=== PATIENT | female | born 1995 | race Caucasian/White ===

== ENCOUNTER 2024-06-12 17:00 | Emergency (ER) | payer BC, SELFPAY ==
[2024-06-12 17:10] VITALS: BP 124/73; PULSE 65; RESP 18; TEMP 36.4; O2SAT 100; BMI 36.6
--- NOTE | 2024-06-12 17:44 | CRLHL7_ITS ---
For Patients: As a result of the Century Cures Act, medical imaging exams and procedure reports are released immediately into your electronic medical record. You may view this report before your referring provider. If you have questions, please contact your health care provider. INDICATION: Dysfunctional heavy bleeding. TECHNIQUE: Ultrasound pelvis transabdominal and transvaginal. Real-time sonographic images with spectral and color Doppler imaging of the ovaries were obtained. COMPARISON: None FINDINGS: Uterus: 9.1 x 3.9 x 4.8 cm. Endometrium: Within normal limits. The endometrial thickness measures 0.3 cm. Mass: No uterine fibroids identified. Free fluid: Trace pelvic free fluid, which may be physiologic. Right ovary: 3.2 x 1.8 x 2.6 cm. No ovarian or adnexal masses. Blood flow is noted on color Doppler. Left ovary: 3.8 x 2.6 x 2.7 cm. No ovarian or adnexal masses. Blood flow is noted on color Doppler. Other: Tubular fluid-filled structure along the posterior cul-de-sac. No internal vascularity. IMPRESSION: Tubular fluid-filled structure along the posterior cul-de-sac, configuration is suggestive of hydrosalpinx. Differential includes dilated loop of bowel, although felt to be less likely as no peristalsis was seen. Dictated by Fransico Beauchamp MD @ 06/12/2024 7:37:57 PM (Electronically Signed)
--- NOTE | 2024-06-12 17:49 | ED.GENADULT ---
HPI - General Adult General Chief complaint: Urogenital Problems, Female Stated complaint: abdomen pain Time Seen by Provider: 06/12/24 17:07 Source: patient Mode of arrival: ambulatory Limitations: language barrier History of Present Illness HPI narrative: Yi-speaking 29-year-old female presents the emergency department with persistent vaginal bleeding for the past 6 days. Reports that her menses have been coming regular to me but she was evaluated by her primary care provider 3 days ago and reported irregular cycles for the past 2 months. She was having return of bleeding after her. Had come as predicted and would last 5 days and then she would start bleeding more heavily for a few days again. No prior pregnancies. Denies chance of now. Did take a home test that was negative yesterday. She was on oral contraceptives for about 13 years and stopped these 2 years ago. She and her partner have been attempting to conceive for the past 3 months per her outpatient records. She is concerned because initially the spotting was light but now has become more heavy. It looks like a referral for an ultrasound and a referral to gynecology was made on her outpatient visit 3 days ago. She had TSH testing which is reportedly normal. I do not see a recent hemoglobin or platelet count. She does have a history of bleeding or blood clotting disorders. No prior history of anticoagulant use. Reports that she has soaked through 6 pads today. Reports that she has had pelvic ultrasound performed in the past care. Circumstances of those are unclear. No prior history of gynecological surgeries. She is having some lower abdominal cramping, not severe. She was informed by the triage nurse to come to the ED since her bleeding has gotten heavier. Reports that her past medical history is benign, no major long-term health problems. No prescription medications. ROS is notable for the gynecological symptoms as above only, otherwise denies times 12 systems. Related Data Home Medications ?Medication ?Instructions ?Recorded ?Confirmed multivitamin (Daily Multi-Vitamin 1 tab PO DAILY 06/12/24 06/12/24 tablet) Previous Rx's ?Medication ?Instructions ?Recorded norethindrone acetate 1.5 See Rx Instructions .Route 06/12/24 mg-ethinyl estradiol 30 mcg tablet .COMPLEX #21 tabs (June) ondansetron 4 mg disintegrating 4 mg PO Q8H PRN nausea and 06/12/24 tablet vomiting #5 tabs Allergies Allergy/AdvReac Type Severity Reaction Status Date / Time No Known Drug Allergies Allergy Verified 06/12/24 17:09 [facility] Social History Smoking Status: Never smoker How often do you have a drink containing alcohol: never How often do you have six or more drinks on one occasion: Never AUDIT-C Alcohol total score: 0 Non-prescribed substance use: denies use service: No Exam Const: Vital Signs, click to edit/add: Vital Signs - 24 hr 06/12/24 17:10 Temperature 97.5 F L Pulse Rate [Pulse Oximeter] 65 Respiratory Rate 18 Blood Pressure [Ri ght Upper Arm] 124/73 Pulse Oximetry 100 Oxygen Delivery Me thod Room Air Documenting provider has reviewed patient's vital signs: yes Common normals: no apparent distress and alert General appearance: cooperative and well kempt HENMT: Common normals: normocephalic Head and scalp: normocephalic Face and sinus: normal facial exam Mouth: oral and palatal mucosa normal Throat: posterior oropharynx normal Eye: Common normals: conjunctivae normal General eye: normal appearance of both eyes Conjunctiva: conjunctiva(e) normal Neck & C-Spine: Common normals: no lymphadenopathy General: normal visual inspection Resp: Common normals: normal respiratory effort, no use of accessory muscles and clear to auscultation bilaterally Effort & inspection: able to speak in complete sentences Auscultation: clear to auscultation bilaterally Cardio: Common normals: regular rate, regular rhythm, S1 normal heart sound, S2 normal heart sound and no murmurs Rate: regular rate Rhythm: regular rhythm Heart sounds: S1 normal and S2 normal GI: Common normals: Normal to inspection, nondistended, normoactive bowel sounds present, soft to palpation, non-tender, no hepatosplenomegaly and no masses Palpation: soft and no hepatosplenomegaly : Common normals: external appearance normal and appearance of the vagina normal Other: Cervix multiparous in appearance with mild to moderate vaginal bleeding, no heavy clots. Dark red color. No unusual odor, no purulent discharge. Bimanual exam shows normal uterine contour, size and positioning. Ovaries cannot be palpated. No obvious mass. No cervical motion tenderness. Extremity: Common normals: normal to inspection and no pedal edema Neuro: Sensorium/orientation: alert Speech: speech normal Psych: Appearance: well kempt Activity/motor behavior: appropriate eye contact Mood and affect: euthymic mood Insight: insight good Judgement: judgment good Skin: Common normals: no rashes or lesions noted General skin exam: no rashes or lesions noted Course Course ED Course: 29-year-old female with increased vaginal bleeding and cramping. No signs of severe hemorrhage on initial exam. Will obtain CBC, basic metabolic panel and test. Pelvic ultrasound ordered. Consider gynecology consult if any severe anemia or abnormalities on ultrasound. Did briefly discuss with patient that we do typically do around of hormones to suppress some antral cycle if the bleeding is heavy or as needed. We can discuss this further as it does sound as though she is attempting to conceive in may want to defer on that. There does not seem to be in any imminent risk of harm from hemorrhage at this time. Reevaluation(s) Time of Reevaluation #1: 20:10 Reevaluation #1: Counseled patient on findings. Blood work is reassuring. No severe anemia. Normal platelets, no leukocytosis. test is negative. Urinalysis is not suspicious for any pathology. Ultrasound shows hydrosalpinx but otherwise no significant abnormalities to the uterus or ovaries. The bleeding has slowed again. Counseled patient on options. She is hesitant to use control pills as she is hoping to conceive. Counseled patient that she certainly does not half to as her bleeding seems to have slowed at this point and she is not showing any signs of dangerous hemorrhage. But I counseled the patient that if she chooses to do so, the proper dosing would be 2 pills by mouth 2 times a day for the 1st day and then 1 pill 2 times a day for the 2nd day and then 1 pill daily until directed to stop or that pack of pills is gone. The bleeding should stop around the 3rd day. Zofran given for anti nausea medicine if needed as well. Alarm symptoms reviewed that would warrant ED presentation. Written instructions provided. [employer] used for all services today. Also counseled on the hydrosalpinx. She should keep her gynecology appointment as scheduled on 06/30. Vital Signs Vital signs: Initial Vital Signs Temperature 97.5 F L 06/12/24 17:10 Temperature Source Temporal Artery Scan 06/12/24 17:10 Pulse Rate 65 06/12/24 17:10 Respiratory Rate 18 06/12/24 17:10 Blood Pressure 124/73 06/12/24 17:10 Blood Pressure Mean 90 06/12/24 17:10 Blood Pressure Position Sitting 06/12/24 17:10 Pulse Oximetry 100 06/12/24 17:10 Oxygen Delivery Method Room Air 06/12/24 17:10 Vital Signs Temperature 97.5 F L 06/12/24 17:10 Pulse Rate 65 06/12/24 17:10 Respiratory Rate 18 06/12/24 17:10 Blood Pressure 124/73 06/12/24 17:10 Pulse Oximetry 100 06/12/24 17:10 Oxygen Delivery Method Room Air 06/12/24 17:10 Temperature 97.5 F L 06/12/24 17:10 Pulse Rate 65 06/12/24 17:10 Respiratory Rate 18 06/12/24 17:10 Blood Pressure 124/73 06/12/24 17:10 Pulse Oximetry 100 06/12/24 17:10 Oxygen Delivery Method Room Air 06/12/24 17:10 Medical Decision Making Lab Data Labs: Lab Results 06/12/24 06/12/24 Range/Units 17:55 19:00 WBC 7.38 (4.50-11.00) K/uL RBC 3.78 L (4.00-5.20) m/uL Hgb 11.8 L (12.0-16.0) gm/dL Hct 35.2 (33.0-51.0) % MCV 93 (80-100) fL MCH 31 (26-34) pg MCHC 34 (32-36) gm/dL RDW Coeff of Zhou 12.8 (11.5-15.5) % Plt Count 278 (140-440) K/uL Neut % (Auto) 59.3 (42.0-72.0) % Lymph % (Auto) 31.2 (20-44) % [place] % (Auto) 6.8 (0.0-11.0) % Eos % (Auto) 2.4 (0.0-7.0) % Baso % (Auto) 0.3 (0.0-3.0) % Neut # (Auto) 4.38 (1.7-7.0) K/uL Lymph # (Auto) 2.30 (0.90-2.90) K/uL [place] # (Auto) 0.50 (0.00-0.90) K/UL Eos # (Auto) 0.18 (0.00-0.50) K/uL Baso # (Auto) 0.02 (0.00-0.30) K/uL Abs Immat Gran (auto) 0.00 (0.00-0.30) K/uL Imm/Tot Granulo (auto) 0.0 % Sodium 138 (135-149) mmol/L Potassium 3.6 (3.6-5.1) mmol/L Chloride 107 (96-114) mmol/L Carbon Dioxide 25 (20-32) mmol/L Anion Gap 6 L (7-15) mEq/L BUN 16 (5-24) mg/dL Creatinine 0.6 (0.5-1.5) mg/dL Estimated Creat Clear 122.25 Estimated GFR 123 ml/min Glucose 94 (60-115) mg/dL Calcium 8.6 (8.4-10.6) mg/dL HCG, Qual Negative (Negative) Urine Color Yellow (Yellow) Urine Appearance Clear (Clear) Urine pH 7.0 (5.0-8.5) Ur Specific [place] 1.020 (1.000-1.030) Urine Protein Negative (Negative) Urine Glucose (UA) Negative (Negative) Urine Ketones Negative (Negative) Urine Blood 2+ A (Negative) Urine Nitrite Negative (Negative) Urine Bilirubin Negative (Negative) Urine Urobilinogen 0.2 (0.2-1.0) Ur Leukocyte Esterase Negative (Negative) Urine RBC 0-2 (0-2) Urine WBC 0-2 (0-5) Ur Squamous Epith Cells Few (None-Few) Urine Bacteria None (None) Discharge Plan Discharge Clinical Impression: Dysfunctional uterine bleeding, Hydrosalpinx Patient Disposition: Home w/ Parent or Adult Condition: Stable Instructions: Abnormal (Dysfunctional) Uterine Bleeding (ED) Additional Instructions: As we discussed, your blood work does not show any signs of abnormal blood clotting, anemia or other abnormality. This is good news. Your ultrasound does not show any abnormality on the uterus or ovaries but it does show some fluid in 1 of the fallopian tubes. This may be making it difficult for you to get . It is not an emergency but it does need further evaluation by a clinical data analyst. Please keep your appointment as scheduled for 2 weeks from now. As discussed, the bleeding is not a dangerous amount currently. You do not have to initiate any treatment. We could make the bleeding slow or stop entirely by using a rapid high dose titration of control pills. You are uncertain if you would like to try these. I have sent a prescription in case you decide that this is something you want to pursue. If you decide to take it, you will take 2 pills by mouth 2 times a day on the 1st day and then 1 pill 2 times per day for the 2nd day and then continue taking 1 pill daily until gone or directed to stop. Unfortunately, this may cause some nausea and I have given you a prescription for some anti nausea medications if needed. For most, the bleeding will stop or slow significantly by the 3rd day. If you continue to have very heavy bleeding, become lightheaded, very dizzy or have other signs of complications, you may return to the emergency department in the meantime. You do not need to keep the appointment for the ultrasound that you have scheduled outpatient. Sabrina ya comentamos, vincent an?lisis de lorena no muestra purvi?n signo de coagulaci?n sangu?taylor anormal, anemia u otra anomal?a. Es pavel buena noticia. Vincent ecograf?a no muestra ninguna anomal?a en el ?tero ni en los ovarios, yoav s? muestra algo de l?quido en pavel de las trompas de [place] puede dificultarle el embarazo. No es pavel emergencia, yoav s? requiere pavel evaluaci?n adicional por parte de un ginec?logo. Por favor, no deje de acudir a vincent jacques programada para dentro de 2 semanas. Sabrina ya comentamos, el sangrado no es peligroso en bunny momento. No tiene que iniciar purvi?n tratamiento. [place]r?[place] hacer que el sangrado sea m?s lento o detenerlo por completo utilizando pavel titulaci?n r?pida de dosis altas de p?ldoras anticonceptivas. No est? porras de si le gustar?a probarlas. Le he enviado pavel receta en lizz de que decida que es algo que desea hacer. Si decide tomarlo, sabine? 2 p?ldoras por v?a oral 2 veces al d?a el primer d?a y luego 1 p?ldora 2 veces al d?a el ye d?a y luego seguir? tomando 1 p?ldora al d?a hasta que se acabe o se le indique que deje de tomarlas. Lamentablemente, esto puede causar algunas n?useas y le he dado pavel receta para algunos medicamentos contra las n?useas si es necesario. En la mayor?a de los casos, el sangrado se detendr? o disminuir? significativamente al tercer d?a. Si contin?a teniendo un sangrado muy intenso, se siente mareada, muy aturdida o tiene otros signos de complicaciones, puede regresar al departamento de emergencias mientras tanto. No es necesario que asista a la jacques para la ecograf?a que program? sabrina paciente ambulatorio. Activity Level: No Restrictions Discharge Diet: Regular Prescriptions: New norethindrone ac-eth estradiol [ (21)] 1.5-30 mg-mcg tablet See Rx Instructions .ROUTE .COMPLEX Qty: 21 0RF Rx Instructions: Two pills by mouth 2 times daily on the 1st day, then 1 pill by mouth 2 times daily the 2nd day, then 1 pill daily until gone ondansetron 4 mg tablet,disintegrating 4 mg PO Q8H PRN (Reason: nausea and vomiting) Qty: 5 0RF Rx Instructions: As needed for nausea No Action multivitamin [Daily Multi-Vitamin] Tablet 1 tab PO DAILY Follow Up/Referrals: Provider,Not a Local [Primary Care Provider] - Stand Alone [facility]
[2024-06-12 18:07] LABS: Basophils Absolute Auto 0.02 K/uL (0.00-0.30); Basophils Percent Auto 0.3 % (0.0-3.0); Eosinophils Absolute Auto 0.18 K/uL (0.00-0.50); Eosinophils Percent Auto 2.4 % (0.0-7.0); Hematocrit 35.2 % (33.0-51.0); Hemoglobin* 11.8 gm/dL (12.0-16.0); Lymphocytes Percent Auto 31.2 % (20-44); Mean Corpuscular HGB Conc 34 gm/dL (32-36); Mean Corpuscular Hemoglobin 31 pg (26-34); Mean Corpuscular Volume 93 fL (80-100); Monocytes Percent Auto 6.8 % (0.0-11.0); Neutrophils Absolute Auto 4.38 K/uL (1.7-7.0); Neutrophils Percent Auto 59.3 % (42.0-72.0); Platelet Count* 278 K/uL (140-440); RDW Coefficient of Variation % 12.8 % (11.5-15.5); Red Blood Count 3.78 m/uL (4.00-5.20); White Blood Count* 7.38 K/uL (4.50-11.00)
[2024-06-12 18:14] LABS: Slide Review Reflex No
[2024-06-12 18:19] LABS: Chloride* 107 mmol/L (96-114); Potassium* 3.6 mmol/L (3.6-5.1); Sodium* 138 mmol/L (135-149)
[2024-06-12 18:22] LABS: Anion Gap 6 mEq/L (7-15); Blood Urea Nitrogen* 16 mg/dL (5-24); Calcium* 8.6 mg/dL (8.4-10.6); Carbon Dioxide* 25 mmol/L (20-32); Creatinine* 0.6 mg/dL (0.5-1.5); Est. Creatinine Clearance* 122.25; Estimated Glomerular Filt Rate 123 ml/min; Glucose* 94 mg/dL (60-115)
[2024-06-12 18:52] LABS: HCG Qualitative Serum* Negative (Negative)
[2024-06-12 19:12] LABS: Appearance Urine Clear (Clear); Bilirubin Urine Negative (Negative); Blood Urine 2+ (Negative); Color Urine Yellow (Yellow); Glucose Urine Negative (Negative); Ketones Urine Negative (Negative); Leukocyte Esterase Urine Negative (Negative); Nitrite Urine Negative (Negative); Protein Urine Negative (Negative); Urobilinogen Urine 0.2 (0.2-1.0)
[2024-06-12 19:30] LABS: RBC Urine 0-2 (0-2); Squamous Epithelial Cell Urine Few (None-Few); WBC Urine 0-2 (0-5)
== END 2024-06-12 20:20 | disposition home or self-care (01) ==
PROVIDERS: Emergency Provider Family Medicine
DX: N93.8 Other specified abnormal uterine and vaginal bleeding (principal); N70.11 Chronic salpingitis
CPT/HCPCS: 36415; 76830; 76856; 80048; 81001; 81003; 84703; 85025; 99284

== ENCOUNTER 2024-07-10 09:39 | Inpatient (IN) | payer BC, SELFPAY ==
[2024-07-10] VITALS (16 sets, daily range): BP systolic 108–130; BP diastolic 57–92; PULSE 90–119; RESP 18–20; TEMP 36.7–38.7; O2SAT 79–100; BMI 36.1; BMI 35.6
--- OUTSIDE RECORDS SUMMARY | 2024-07-10 09:41 | XMS_ITS | Clinical Summary ---
Author Organization [facility] Address [place], [place] [address] Care Team Providers Care Parts Facilitator Name Role Phone Pcp, No Primary Care Provider Unavailabl e Allergies No known active allergies Medications multivit,thx,ca lcium,iron,mins (MULTIVITAMIN AND MINERAL ORAL) Take by mouth. Active doxycycline hyclate 100 mg capsuleIndicati ons:Hydrosalpin x Take 2 Capsules (200 mg) by mouth one time for 1 dose. Take just before the x-ray study (HSG) 2 Capsule 06/30/19 25 Active Problems No known active problems Encounters Date Type Department Care Team Description 07/09/2024 8:14 AM FOOD AND BEVERAGE OPERATIONS MANAGER - 07/09/2024 11:59 PM FOOD AND BEVERAGE OPERATIONS MANAGER Hospital Encounter [facility] Medical Imaging [address] [place] [address] Lux Finch MD Irregular menses 07/09/2024 Telephone [facility] [address] [facility] [address] [place] [address] Lux Finch MD Results 07/08/2024 9:45 AM FOOD AND BEVERAGE OPERATIONS MANAGER Orders Only [facility] [address] [place] [address] Lab, [facility] 07/08/2024 Travel 07/01/2024 Telephone [facility] [address] [facility] [address] [place] [address] Lux Finch MD Appointment 06/30/2024 4:00 PM FOOD AND BEVERAGE OPERATIONS MANAGER Office Visit [facility] [address] [place] [address] Lux Finch MD Consult (Discuss Irregular cycle ) 06/30/2024 Travel 06/23/2024 4:00 PM FOOD AND BEVERAGE OPERATIONS MANAGER Ancillary Procedure [facility] [address] [place] [address] 06/23/2024 Travel 06/11/2024 Nurse Triage [facility] [address] [place] [address] Lux Finch MD Building Construction Engineer Exam; Vaginal Bleeding 06/09/2024 8:55 AM FOOD AND BEVERAGE OPERATIONS MANAGER Office Visit [facility] [address] [place] [address] Renee Calle, Physical (29 year old ); Menstrual Problem (Has been having an irregular period for a couple months, will sometimes get more bleeding the following week - would like an US - is interesting in getting as well ); Thyroid Problem (Was diagnosed with thyroid disorder previously as well and had been taking medication, has not taken medication for about 1.5 years - had labs checked in August 2023 and labs were normal ) 06/09/2024 Travel from Last 3 Months Family History Medical History Relation Name Comments Hypertension Father Hypertension Maternal Grandfather Hypertension Maternal Grandmother Hypertension Mother Cancer Paternal Grandfather stomach Diabetes type II Paternal Grandfather Diabetes type II Paternal Grandmother Relation Name Status Comments Father Maternal Grandfather Maternal Grandmother Mother Paternal Grandfather Paternal Grandmother Social History Tobacco Use Types Packs/Day Years Used Date Smoking Tobacco: Never Passive Smoke Exposure: Never Smokeless Tobacco: Never Tobacco Cessation:Counseling Given: Yes Alcohol Use Standard Drinks/Week Comments Yes 0 (1 standard drink = 0.6 oz pur e alcohol) social PHQ-2 Answer Date Recorded PHQ-2 TOTAL SCORE 2 06/09/2024 Social Connections Answer Date Recorded Do you often feel lonely or isolated from those around you? 0 06/09/2024 Financial Resource Strain Answer Date R ecorded Difficulty of Paying Living Expenses 3 06/09/2024 Difficulty of Paying Living Expenses Not on file 06/09/2024 Food Insecurity Answer Date Recorded Do you worry your food will run out before you are able to buy more? 1 06/09/2024 Transportation Needs Answer Date Record ed Does lack of transportation keep you from medica l appointments? 1 06/09/2024 Does lack of transportation keep you from work, meetings or getting things that you need? 1 06/09/2024 Housing Stability Answer Date Recorded What is your housing situation today? 3 06/09/2024 Utilities Answer Date Recorded Do you have trouble paying f or utilities (for example, heat, electricity, water, phone)? 1 06/09/2024 Comments No Sex and Gender Information Value Date Recorded Sex Assigned at Not on file Legal Sex Female 3:32 PM FOOD AND BEVERAGE OPERATIONS MANAGER Gender Identity Not on file Sexual Orientation Not on file Obstetrics History Para Term AB IAB SAB Ectopic Multiple Livin g Live Births 0 0 0 0 0 0 0 0 0 0 0 Last Filed Vital Signs Vital Sign Reading Time Taken Comments Blood Pressure 134/86 06/30/2024 4:12 PM FOOD AND BEVERAGE OPERATIONS MANAGER Pulse 72 06/30/2024 4:12 PM FOOD AND BEVERAGE OPERATIONS MANAGER Temperature - - Respiratory Rate - - Oxygen Saturation 98% 06/09/2024 9:05 AM FOOD AND BEVERAGE OPERATIONS MANAGER Inhaled Oxygen Concentration - - Weight 98.8 kg (217 lb 14.4 oz) 06/30/2024 4:12 PM FOOD AND BEVERAGE OPERATIONS MANAGER Height 168.5 cm (5' 6.34) 06/09/2024 9:05 AM CS T Body Mass Index 34.81 06/09/2024 9:05 AM FOOD AND BEVERAGE OPERATIONS MANAGER Plan of Treatment Upcoming Encounters Date Type Department Care Team (Late st Contact Info) Description 07/14/2024 1:45 PM FOOD AND BEVERAGE OPERATIONS MANAGER Nurse/Clinic Staff Only [facility] [address] [place] [address] 07/14/2024 2:00 PM FOOD AND BEVERAGE OPERATIONS MANAGER Orders Only [facility] [address] [place] [address] [place], [place] 07/15/2024 7:30 AM FOOD AND BEVERAGE OPERATIONS MANAGER Nurse/Clinic Staff Only [facility] [address] [place] [address] [address] 07/29/2024 10:15 AM FOOD AND BEVERAGE OPERATIONS MANAGER Ancillary Procedure [facility] [address] [place] [address] Lux Finch MD [address] [facility] [address] [place] [address] Health Maintenance Due Date Last Done Comments Tdap 01/16/2004 HIV for age 15-65 01/16/2008 Hepatitis C screening for ag e 18-79 2011 Tetanus booster 2013 Pap test for age 21-65 2014 COVID-19 vaccine series (2023- season) 2024 Influenza for age 9-49 02/02/2024 BMI (ht and wt on same day) for age 18+ 06/09/2025 06/09/2024 Depression screening for age 12+ 06/11/2025 06/11/2024, 06/09/2024 Pneumococcal series for age 6-49 Aged Out No longer eligible b ased on patient's age to complete this topic Procedures Procedure Name Priority Date/Time Associated Diagnosis Comments XR HYSTEROSALPINGOGRAM Routine 9:59 AM FOOD AND BEVERAGE OPERATIONS MANAGER Irregular menses T4,FREE Routine 07/08/2024 9:15 AM FOOD AND BEVERAGE OPERATIONS MANAGER FSH Routine 07/08/2024 9:15 AM FOOD AND BEVERAGE OPERATIONS MANAGER Irregular menses TSH WITH REFLEX Routine 07/08/2024 9:15 AM FOOD AND BEVERAGE OPERATIONS MANAGER Irregular menses PROLACTIN Routine 07/08/2024 9:15 AM FOOD AND BEVERAGE OPERATIONS MANAGER Irregular menses US PELVIS COMPLETE TA AND TV Routine 06/23/2024 4:11 PM FOOD AND BEVERAGE OPERATIONS MANAGER Irregular menses T4,FREE Routine 06/09/2024 10:18 AM FOOD AND BEVERAGE OPERATIONS MANAGER TSH WITH REFLEX Routine 06/09/2024 10:18 AM FOOD AND BEVERAGE OPERATIONS MANAGER History of thyroid disorder BASIC METABOLIC PANEL Routine 06/09/2024 10:18 AM FOOD AND BEVERAGE OPERATIONS MANAGER Annual physical exam CBC WITH AUTO DIFFERENTIAL Routine 06/09 10:18 AM FOOD AND BEVERAGE OPERATIONS MANAGER Annual physical exam HEMOGLOBIN A1C MONITORING (POCT) Routine 06/09/2024 10:17 AM FOOD AND BEVERAGE OPERATIONS MANAGER Class 2 severe obesity with body mass index (BMI) of 35 to 39.9 with serious comorbidity (HC) from Last 3 Months Results * XR HYSTEROSALPINGOGRAM (07/09/2024 9:59 AM FOOD AND BEVERAGE OPERATIONS MANAGER) Anatomical Region Laterality Modality UTERUS Computed Radiogr aphy 07/09/2024 9:59 AM FOOD AND BEVERAGE OPERATIONS MANAGER Impressions 07/09/2024 11:53 AM FOOD AND BEVERAGE OPERATIONS MANAGER 1. Severe bilateral hydrosalpinx with marked dilation of the distal fallopian tubes bilaterally. No free spillage was identified from either the right or left fallopian tube suggesting bilateral occlusion. Narrative 07/09/2024 11:53 AM FOOD AND BEVERAGE OPERATIONS MANAGER For Patients: As a result of the Cures Act, medical imaging exams and procedure reports are released immediately into your electronic medical record. You may view this report before your referring provider. If you have questions, please contact your health care provider. EXAM: XR HYSTEROSALPINGOGRAM LOCATION: [facility] MEDICAL IMAGING DATE: 07/09/2024 INDICATION: Irregular Menses COMPARISON: None. RADIATION DOSE: DAP 892.2 uGym2 PROCEDURE: Procedure and risks explained and consent received. A time out was performed where the proper patient, procedure, and site were confirmed. Using sterile technique, a hysterosalpingogram catheter was placed into the cervix by Dr. Barber and 8 mL Omni 300 contrast material was injected into the uterus and fallopian tubes under direct fluoroscopic supervision. Routine images obtained. COMPLICATIONS: None. RADIOLOGIC SUPERVISION AND INTERPRETATION: UTERUS: Normal configuration with no filling defects or strictures. FALLOPIAN TUBES: Severe bilateral hydrosalpinx with marked dilation of the distal fallopian tubes bilaterally. No free spillage was identified from either the right or left fallopian tubes. Procedure Note Gonzales Barber MD - 07/09/2024 For Patients: As a result of the Cures Act, medical imagingexams and procedure reports are released immediately into your electronicmedical record. You may view this report before your referring provider.If you have questions, please contact your health care provider. EXAM: XR HYSTEROSALPINGOGRAM LOCATION: [facility] MEDICAL IMAGING DATE: 07/09/2024 INDICATION: Irregular Menses COMPARISON: None. RADIATION DOSE: DAP 892.2 uGym2 PROCEDURE: Procedure and risks explained and consent received. A time outwas performed where the proper patient, procedure, and site wereconfirmed. Using sterile technique, a hysterosalpingogram catheter wasplaced into the cervix by Dr. Barber and 8 mL Omni 300 contrast materialwas injected into the uterus and fallopian tubes under direct fluoroscopicsupervision. Routine images obtained. COMPLICATIONS: None. RADIOLOGIC SUPERVISION AND INTERPRETATION: UTERUS: Normal configuration with no filling defects or strictures. FALLOPIAN TUBES: Severe bilateral hydrosalpinx with marked dilation of thedistal fallopian tubes bilaterally. No free spillage was identified fromeither the right or left fallopian tubes. IMPRESSION: 1. Severe bilateral hydrosalpinx with marked dilation of the distalfallopian tubes bilaterally. No free spillage was identified from eitherthe right or left fallopian tube suggesting bilateral occlusion. us Lux Finch MD FLUOROSCOPY Final Result * (ABNORMAL) TSH WITH REFLEX (07/08/2024 9:15 AM FOOD AND BEVERAGE OPERATIONS MANAGER) Only the most recent of2 resultswithin the time period is included. TSH W/REFLEX TO FT4 5.04(H) mIU/L [facility] Comment: Reference Range > or = 20 Years 0.40-4.50 Ranges First trimester 0.26-2.66 Second trimester 0.55-2.73 Third trimester 0.43-2.91 Blood BLOOD SPECIMEN / Unknown 07/08/2024 9:15 AM FOOD AND BEVERAGE OPERATIONS MANAGER 07/08/2024 9:15 AM FOOD AND BEVERAGE OPERATIONS MANAGER us Lux Finch MD CHEMISTRY Final Result [facility] [address] [place] [address], [facility] [address] [place] [address] * T4,FREE (07/08/2024 9:15 AM FOOD AND BEVERAGE OPERATIONS MANAGER) Only the most recent of2 resultswithin the time period is included. [facility] T4, FREE 1.1 0.8 - 1.8 ng/dL [facility] 07/08/2024 9:15 AM FOOD AND BEVERAGE OPERATIONS MANAGER 07/08/2024 9:15 AM FOOD AND BEVERAGE OPERATIONS MANAGER Lux Finch MD CHEMISTRY Final Result [facility] [address] [place] [address], [place] [phone] [facility] [address] [place] [address] * PROLACTIN (07/08/2024 9:15 AM FOOD AND BEVERAGE OPERATIONS MANAGER) [facility] PROLACTIN 8.5 ng/mL [facility] Comment: Reference Range Females Non- 3.0-30.0 10.0-209.0 Postmenopausal 2.0-20.0 Blood BLOOD SPECIMEN / Unknown 07/08/2024 9:15 AM FOOD AND BEVERAGE OPERATIONS MANAGER 07/08/2024 9:15 AM FOOD AND BEVERAGE OPERATIONS MANAGER Lux Finch MD SEND OUTS Final Result [facility] [address] [place] [address], [place] [phone] [facility] [address] [place] [address] * FSH (07/08/2024 9:15 AM FOOD AND BEVERAGE OPERATIONS MANAGER) [facility] FSH 6.5 mIU/mL [facility] Comment: Reference Range Follicular Phase 2.5-10.2 Mid-cycle Peak 3.1-17.7 Luteal Phase 1.5- 9.1 Postmenopausal 23.0-116.3 Blood BLOOD SPECIMEN / Unknown 07/08/2024 9:15 AM FOOD AND BEVERAGE OPERATIONS MANAGER 07/08/2024 9:15 AM FOOD AND BEVERAGE OPERATIONS MANAGER us Lux Finch MD CHEMISTRY Final Result [facility] [address] [place] [address], [place] [phone] [facility] [address] [place] [address] * US PELVIS COMPLETE TA AND TV (06/23/2024 4:11 PM FOOD AND BEVERAGE OPERATIONS MANAGER) Anatomical Region Laterality Modality Pelvis Ultrasound 06/23/2024 5:44 PM FOOD AND BEVERAGE OPERATIONS MANAGER Impressions 06/23/2024 5:44 PM FOOD AND BEVERAGE OPERATIONS MANAGER Endometrium is heterogeneous and measures 9 millimeters. 4.6 cm simple left ovarian cyst. Possible left hydrosalpinx. Dictated by Lux Rodriguez MD @ 06/23/2024 5:44:55 PM (Electronically Signed) Narrative 06/23/2024 5:44 PM FOOD AND BEVERAGE OPERATIONS MANAGER For Patients: As a result of the Century Cures Act, medical imaging exams and procedure reports are released immediately into your electronic medical record. You may view this report before your referring provider. If you have questions, please contact your health care provider. INDICATION: Irregular menses COMPARISON: none TECHNIQUE: 2D fernandez scale and color Doppler images were acquired of the pelvis using a transabdominal and transvaginal approach. FINDINGS: Sonographic images demonstrate a normal size and smooth outer contour of the uterus. Uterus measures 9.3 cm in length by 4.2 cm in AP diameter by 4.1 cm in transverse dimension. The myometrium has a heterogeneous echotexture. The endometrial lining appears heterogeneous and measures 9 mm in composite thickness. The right ovary measures 3.7 x 2.7 x 1.9 cm in size and the left ovary measures 6.7 x 3.7 x 2.0 cm. The ovaries demonstrate normal arterial and venous blood flow on color Doppler analysis. Simple circumscribed left ovarian cyst is present measuring 4.6 x 4.3 x 4.4 cm. Left hydrosalpinx may be present. Procedure Note Lux Rodriguez MD - 06/23/2024 For Patients: As a result of the Century Cures Act, medical imagingexams and procedure reports are released immediately into your electronicmedical record. You may view this report before your referring provider.If you have questions, please contact your health care provider. INDICATION: Irregular menses COMPARISON: none TECHNIQUE: 2D fernandez scale and color Doppler images were acquired of the pelvis using atransabdominal and transvaginal approach. FINDINGS: Sonographic images demonstrate a normal size and smooth outer contour ofthe uterus. Uterus measures 9.3 cm in length by 4.2 cm in AP diameter by4.1 cm in transverse dimension. The myometrium has a heterogeneousechotexture. The endometrial lining appears heterogeneous and measures 9mm in composite thickness. The right ovary measures 3.7 x 2.7 x 1.9 cm in size and the left ovarymeasures 6.7 x 3.7 x 2.0 cm. The ovaries demonstrate normal arterial andvenous blood flow on color Doppler analysis. Simple circumscribed leftovarian cyst is present measuring 4.6 x 4.3 x 4.4 cm. Left hydrosalpinxmay be present. IMPRESSION: Endometrium is heterogeneous and measures 9 millimeters. 4.6 cm simple left ovarian cyst. Possible left hydrosalpinx. Dictated by Lux Rodriguez MD @ 06/23/2024 5:44:55 PM (Electronically Signed) [facility] Final Result * CBC AND DIFFERENTIAL (06/09/2024 10:18 AM FOOD AND BEVERAGE OPERATIONS MANAGER) WHITE BLOOD CELL COUNT 6.5 3.8 - 10.8 Thousand/u L [facility] RED BLOOD CELL COUNT 3.90 3.80 - 5.10 Million/uL [facility] HEMOGLOBIN 12.4 11.7 - 15.5 g/dL [facility] HEMATOCRIT 36.7 35.0 - 45.0 % [facility] MCV 94.1 80.0 - 100.0 fL [facility] MCH 31.8 27.0 - 33.0 pg [facility] MCHC 33.8 32.0 - 36.0 g/dL [facility] Comment: For adults, a slight decrease in the calculated MCHC value (in the range of 30 to 32 g/dL) is most likely not clinically significant; however, it should be interpreted with caution in correlation with other red cell parameters and the patient's clinical condition. RDW 12.5 11.0 - 15.0 % [facility] PLATELET COUNT 303 140 - 400 Thousand/u L [facility] MPV 9.9 7.5 - 12.5 fL [facility] ABSOLUTE NEUTROPHILS 3,913 1,500 - 7,800 cells/uL [facility] ABSOLUTE LYMPHOCYTES 1,937 850 - 3,900 cells/uL [facility] ABSOLUTE MONOCYTES 449 200 - 950 cells/uL [facility] ABSOLUTE EOSINOPHILS 169 15 - 500 cells/uL [facility] ABSOLUTE BASOPHILS 33 0 - 200 cells/uL [facility] NEUTROPHILS 60.2 % [facility] LYMPHOCYTES 29.8 % [facility] MONOCYTES 6.9 % [facility] EOSINOPHILS 2.6 % [facility] BASOPHILS 0.5 % [facility] Blood BLOOD SPECIMEN / Unknown 06/09/2024 10:18 AM FOOD AND BEVERAGE OPERATIONS MANAGER 06/09/2024 10:18 AM FOOD AND BEVERAGE OPERATIONS MANAGER us Kelsiei Alva DO HEMATOLOGY Final Result [facility] [address] [place] [address], [facility] [address] [place] [address] * BASIC METABOLIC PANEL (06/09/2024 10:18 AM FOOD AND BEVERAGE OPERATIONS MANAGER) Pathologist [facility] GLUCOSE 83 65 - 99 mg/dL [facility] Comment: Fasting reference interval UREA NITROGEN (BUN) 15 7 - 25 mg/dL [facility] CREATININE 0.67 0.50 - 0.97 mg/dL [facility] EGFR 120 > OR = 60 mL/min/1. 73m2 [facility] BUN/CREATININE RATIO SEE NOTE: 6 - 22 (calc) [facility] Comment: Not Reported: BUN and Creatinine are within reference range. SODIUM 140 135 - 146 mmol/L [facility] POTASSIUM 4.4 3.5 - 5.3 mmol/L [facility] CHLORIDE 107 98 - 110 mmol/L [facility] CARBON DIOXIDE 24 20 - 32 mmol/L [facility] ELECTROLYTE BALANCE 9 7 - 17 mmol/L (calc) [facility] CALCIUM 9.0 8.6 - 10.2 mg/dL [facility] Blood BLOOD SPECIMEN / Unknown 06/09/2024 10:18 AM FOOD AND BEVERAGE OPERATIONS MANAGER 06/09/2024 10:18 AM FOOD AND BEVERAGE OPERATIONS MANAGER Renee Calle DO CHEMISTRY Final Result [facility] [address] [place] [address], [place] [phone] [facility] [address] [place] [address] * POCT Hemoglobin A1C Monitoring (06/09/2024 10:17 AM FOOD AND BEVERAGE OPERATIONS MANAGER) POC HEMOGLOBIN A1C 5.2 <6.0 % OF TOTAL HGB [facility] Comment: Any point of care results exhibiting inconsistency with the patient's clinical status should be repeated using a different testing method. Blood BLOOD SPECIMEN / Unknown 06/09/2024 10:17 AM FOOD AND BEVERAGE OPERATIONS MANAGER 06/09/2024 10:17 AM FOOD AND BEVERAGE OPERATIONS MANAGER Renee Calle DO CHEMISTRY Final Result [facility] [address] [place] [address], [place] [phone] [facility] [address] [place] [address] from Last 3 Months Insurance BLUE CROSS OF NON-MO-ITS Care Teams Parts Facilitator Relationship Specialty Start Date End Date Pcp, No . PCP - General 05/21/24
--- NOTE | 2024-07-10 10:05 | CRLHL7_ITS ---
For Patients: As a result of the Century Cures Act, medical imaging exams and procedure reports are released immediately into your electronic medical record. You may view this report before your referring provider. If you have questions, please contact your health care provider. INDICATION: Left lower quadrant pain. According to the ultrasound worksheet, the patient had a salpingogram performed yesterday at [facility] (those images are not available for comparison). COMPARISON: None available. TECHNIQUE: Transabdominal and endovaginal grayscale and spectral Doppler pelvic ultrasound. FINDINGS: LMP: Not provided. Uterus: Measures 4.9 x 4 x 8.8cm. Unremarkable cervix. Please note that US is insensitive for detection of epithelial lesions of the cervix, compared to physical examination. Endometrial stripe: Measures 3mm. Uniform in thickness. Right Ovary: Measures 2.3 x 2.5 x 3.7cm and 11mL. Morphologically normal. Spectral Doppler demonstrates normalarterial and venousblood flow. Left Ovary: Measures 3 x 2.1 x 3.3cm and 11mL. Morphologically normal. Spectral Doppler demonstrates normalarterial and venousblood flow. Pelvic fluid: Small volume anechoic left adnexal free pelvic fluid. Bilateral hydrosalpinges, left larger than right. Low-level particulate debris is present within the asymmetrically dilated left fallopian tube. This may indicate evidence of pyosalpinx. Clinical correlation is recommended. IMPRESSION: Bilateral asymmetrical, left larger than right, hydrosalpinges. Low-level particular debris within the dilated left fallopian tube may indicate evidence of pyosalpinx. Clinical correlation is recommended. Small volume left adnexal free pelvic fluid. Normal uterus and ovaries. Dictated by Syd Clinton MD @ 07/10/2024 12:16:22 PM (Electronically Signed)
--- NOTE | 2024-07-10 10:13 | ED_ITS ---
HPI - General Adult General Chief complaint: Abdominal Pain Stated complaint: Abdominal Pain Time Seen by Provider: 07/10/24 10:04 Source: patient Mode of arrival: ambulatory Limitations: no limitations History of Present Illness HPI narrative: 29-year-old female presenting today with pelvic pain. Patient states that she had a salpingogram done yesterday and did okay post procedure. She required ibuprofen last night and this morning she took another dose but the pain is overwhelming. Pain is suprapubic. She denies pain with urination or blood in her urine. She had a bowel movement yesterday that was normal. She denies any fevers or chills. She feels very nauseated, denies vomiting. Nothing seems to make the pain better or worse. According to the patient, she takes a daily multivitamin, no other medications. Related Data Home Medications ?Medication ?Instructions ?Recorded ?Confirmed multivitamin (Daily Multi-Vitamin 1 tab PO DAILY 06/12/24 07/10/24 tablet) Allergies Allergy/AdvReac Type Severity Reaction Status Date / Time No Known Drug Allergies Allergy Verified 06/12/24 17:09 Review of Systems Status of ROS: Reports: 10 or more systems reviewed and unremarkable except as noted in History and below PFSH PFS Social History Smoking Status: Never smoker How often do you have a drink containing alcohol: never How often do you have six or more drinks on one occasion: Never AUDIT-C Alcohol total score: 0 Non-prescribed substance use: denies use service: No Exam Narrative: Exam Narrative: Well-nourished well-developed patient, appears overwhelmed. Alert and oriented. Answers questions appropriately. Thoughts are goal oriented and rational. No tangential or magical thinking noted. Patient speaks in full sentences without needing to catch her breath. HEENT: Normocephalic atraumatic. Pupils are equally round reactive to light. Extraocular muscles are intact. Conjunctivae are moist without any icterus noted. Moist mucous membranes. Cardiovascular: Heart is regular rate and rhythm S1 and S2 are present without any murmurs. Lungs: Clear to auscultation bilaterally no wheezes rhonchi or rales are appreciated. Patient takes deep breaths without any discomfort. Abdomen: Soft, nondistended with normal bowel sounds. Patient has suprapubic discomfort and the lower right and left lower quadrant discomfort. Extremities: Bilateral lower extremities are without edema. Skin: Well perfused without any obvious rashes. Const: Vital Signs, click to edit/add: Vital Signs - 24 hr 07/10/24 09:57 07/10/24 12:12 07/10/24 12:12 Temperature 98.1 F Pulse Rate 93 Pulse Rate [Pulse Oximeter] 90 99 Respiratory Rate 20 18 Blood Pressure Blood Pressure [Ri ght Upper Arm] 115/68 115/76 Pulse Oximetry 100 98 98 Oxygen Delivery Me thod Room Air 07/10/24 12:13 07/10/24 13:43 07/10/24 13:44 Temperature Pulse Rate 95 113 H 114 H Pulse Rate [Pulse Oximeter] Respiratory Rate Blood Pressure 115/76 130/92 H Blood Pressure [Ri ght Upper Arm] Pulse Oximetry 100 97 97 Oxygen Delivery Me thod 07/10/24 13:44 07/10/24 13:45 07/10/24 14:00 Temperature Pulse Rate 114 H 112 H 115 H Pulse Rate [Pulse Oximeter] Respiratory Rate Blood Pressure 130/92 H Blood Pressure [Ri ght Upper Arm] Pulse Oximetry 97 95 95 Oxygen Delivery Me thod 07/10/24 14:01 07/10/24 14:15 07/10/24 14:30 Temperature Pulse Rate 119 H 114 H 116 H Pulse Rate [Pulse Oximeter] Respiratory Rate Blood Pressure 127/79 Blood Pressure [Ri ght Upper Arm] Pulse Oximetry 79 L 96 98 Oxygen Delivery Me thod 07/10/24 14:31 07/10/24 14:31 07/10/24 14:31 Temperature Pulse Rate 119 H 119 H 119 H Pulse Rate [Pulse Oximeter] Respiratory Rate Blood Pressure 117/60 117/60 117/60 Blood Pressure [Ri ght Upper Arm] Pulse Oximetry 98 98 98 Oxygen Delivery Me thod 07/10/24 14:45 Temperature Pulse Rate 114 H Pulse Rate [Pulse Oximeter] Respiratory Rate Blood Pressure Blood Pressure [Ri ght Upper Arm] Pulse Oximetry 95 Oxygen Delivery Me thod Course Course ED Course: IV was established and patient is given 30 mg of IV Toradol. WBC is elevated at 16.85. Normal lactate. Chemistries are normal. CRP is elevated at 2.8. UA shows 2+ blood, 0-2 RBCs moderate squamous epithelial cells. Pelvic ultrasound shows bilateral asymmetrical left larger than right hydrosalpinges, low level particular debris within the dilated left fallopian tube may indicate evidence of pyosalpinx. I discussed this with Dr. Chang who recommended outpatient treatment for PID with a dose of Rocephin here in the ER and oral doxycycline. However as we were waiting for the patient's results to all returned she became very nauseated and vomited multiple times. She then spiked a temperature of 101?. Her pain got gradually worse and she required Dilaudid IV pain medication for pain control. Discussed these changes with Dr. Chang who was in agreement with inpatient treatment. Because of her fever we also checked for COVID and influenza which were negative. Vital Signs Vital signs: Initial Vital Signs Temperature 98.1 F 07/10/24 09:57 Temperature Source Temporal Artery Scan 07/10/24 09:57 Pulse Rate 90 07/10/24 09:57 Respiratory Rate 20 07/10/24 09:57 Blood Pressure 115/68 07/10/24 09:57 Blood Pressure Mean 83 07/10/24 09:57 Pulse Oximetry 100 07/10/24 09:57 Vital Signs Temperature 98.1 F 07/10/24 09:57 Pulse Rate 90 07/10/24 09:57 Respiratory Rate 20 07/10/24 09:57 Blood Pressure 115/68 07/10/24 09:57 Pulse Oximetry 100 07/10/24 09:57 Temperature 98.1 F 07/10/24 09:57 Pulse Rate 114 H 07/10/24 14:45 Respiratory Rate 18 07/10/24 12:12 Blood Pressure 117/60 07/10/24 14:31 Pulse Oximetry 95 07/10/24 14:45 Oxygen Delivery Method Room Air 07/10/24 12:12 Medications Administered Medications: Discontinued Medications Generic Name Dose Route Start Last Admin Trade Name Freq PRN Reason Stop Dose Admin Hydromorphone HCl 0.5 mg 07/10/24 13:24 07/10/24 13:38 Hydromorphone 0.5 Mg/0.5 Ml Inj IVP 07/10/24 13:25 0.5 mg ONCE ONE Administration Ceftriaxone Sodium 2 gm/ 100 mls @ 200 mls/hr 07/10/24 12:41 07/10/24 13:30 Sodium Chloride IVPB 07/10/24 12:42 Infused ONCE ONE Infusion Sodium Chloride 500 mls @ 500 mls/hr 07/10/24 12:41 07/10/24 13:24 0.9 % Sodium Chloride 500 Ml IV 07/10/24 13:40 500 mls/hr .Q1H ONE Administration Ketorolac Tromethamine 30 mg 07/10/24 10:05 07/10/24 10:22 Ketorolac 30 Mg/Ml Inj IVP 07/10/24 10:06 30 mg ONCE ONE Administration Ondansetron HCl 4 mg 07/10/24 12:41 07/10/24 12:54 Ondansetron 2 Mg/Ml Inj IVP 07/10/24 12:42 4 mg ONCE ONE Administration Medical Decision Making MDM Narrative Medical decision making narrative: 29-year-old female with bilateral hydrosalpinx and questionable pyosalpinx. Patient will be admitted for further management. Medical Records Medical records reviewed: Yes I reviewed the patient's medical records Lab Data Lab results reviewed: Yes I reviewed the patient's lab results Labs: Lab Results 07/10/24 07/10/24 07/10/24 Range/Units 10:22 10:50 13:30 WBC 16.85 H (4.50-11.00) K/uL RBC 3.58 L (4.00-5.20) m/uL Hgb 11.1 L (12.0-16.0) gm/dL Hct 33.1 (33.0-51.0) % MCV 93 (80-100) fL MCH 31 (26-34) pg MCHC 34 (32-36) gm/dL RDW Coeff of Zhou 12.4 (11.5-15.5) % Plt Count 248 (140-440) K/uL Neut % (Auto) 87.3 H (42.0-72.0) % Lymph % (Auto) 6.9 L (20-44) % [place] % (Auto) 5.3 (0.0-11.0) % Eos % (Auto) 0.2 (0.0-7.0) % Baso % (Auto) 0.1 (0.0-3.0) % Neut # (Auto) 14.70 H (1.7-7.0) K/uL Lymph # (Auto) 1.20 (0.90-2.90) K/uL [place] # (Auto) 0.90 (0.00-0.90) K/UL Eos # (Auto) 0.00 (0.00-0.50) K/uL Baso # (Auto) 0.00 (0.00-0.30) K/uL Abs Immat Gran (auto) 0.00 (0.00-0.30) K/uL Imm/Tot Granulo (auto) 0.2 % Sodium 139 (135-149) mmol/L Potassium 3.8 (3.6-5.1) mmol/L Chloride 106 (96-114) mmol/L Carbon Dioxide 21 (20-32) mmol/L Anion Gap 12 (7-15) mEq/L BUN 17 (5-24) mg/dL Creatinine 0.6 (0.5-1.5) mg/dL Estimated Creat Clear 122.25 Estimated GFR 123 ml/min Glucose 109 (60-115) mg/dL Lactate 1.5 (0.5-1.9) mmol/L Calcium 8.8 (8.4-10.6) mg/dL C-Reactive Protein 2.8 H (0.5-1.0) mg/dL Urine Color Yellow (Yellow) Urine Appearance Slightly Cloudy A (Clear) Urine pH 5.5 (5.0-8.5) Ur Specific [place] 1.020 (1.000-1.030) Urine Protein Negative (Negative) Urine Glucose (UA) Negative (Negative) Urine Ketones Negative (Negative) Urine Blood 2+ A (Negative) Urine Nitrite Negative (Negative) Urine Bilirubin Negative (Negative) Urine Urobilinogen 0.2 (0.2-1.0) Ur Leukocyte Esterase Negative (Negative) Urine RBC 0-2 (0-2) Urine WBC 0-2 (0-5) Ur Squamous Epith Cells Moderate A (None-Few) Amorphous Sediment Few A (None) Urine Bacteria Moderate A (None) Urine HCG, Qual Negative (Negative) SARS-CoV-2 (PCR) Negative SARS-CoV-2 (Negative) Influenza Type A (PCR) Negative PCR FLU A (Negative) Influenza Type B (PCR) Negative PCR FLU B (Negative) Imaging Data US - abdomen: Attestation: I have reviewed the pertinent imaging results. Radiologist's impression: TECHNIQUE: Transabdominal and endovaginal grayscale and spectral Doppler pelvic ultrasound. FINDINGS: LMP: Not provided. Uterus: Measures 4.9 x 4 x 8.8cm. Unremarkable cervix. Please note that US is insensitive for detection of epithelial lesions of the cervix, compared to physical examination. Endometrial stripe: Measures 3mm. Uniform in thickness. Right Ovary: Measures 2.3 x 2.5 x 3.7cm and 11mL. Morphologically normal. Spectral Doppler demonstrates normalarterial and venousblood flow. Left Ovary: Measures 3 x 2.1 x 3.3cm and 11mL. Morphologically normal. Spectral Doppler demonstrates normalarterial and venousblood flow. Pelvic fluid: Small volume anechoic left adnexal free pelvic fluid. Bilateral hydrosalpinges, left larger than right. Low-level particulate debris is present within the asymmetrically dilated left fallopian tube. This may indicate evidence of pyosalpinx. Clinical correlation is recommended. IMPRESSION: Bilateral asymmetrical, left larger than right, hydrosalpinges. Low-level particular debris within the dilated left fallopian tube may indicate evidence of pyosalpinx. Clinical correlation is recommended. Small volume left adnexal free pelvic fluid. Normal uterus and ovaries. Discharge Plan Discharge Clinical Impression: Pyosalpinx Patient Disposition: Admitted As Observation Condition: Stable Prescriptions: No Action multivitamin [Daily Multi-Vitamin] Tablet 1 tab PO DAILY Follow Up/Referrals: Provider,Not a Local [Primary Care Provider] -
[2024-07-10] MEDS: KETOROLAC 30 MG/ML inj IVP ×2 (10:22→17:39)
[2024-07-10 10:36] LABS: Lactate* 1.5 mmol/L (0.5-1.9)
[2024-07-10 10:43] LABS: Basophils Percent Auto 0.1 % (0.0-3.0); Eosinophils Percent Auto 0.2 % (0.0-7.0); Hematocrit 33.1 % (33.0-51.0); Hemoglobin* 11.1 gm/dL (12.0-16.0); Immature Granulocytes Pct Auto 0.2 %; Lymphocytes Percent Auto 6.9 % (20-44); Mean Corpuscular HGB Conc 34 gm/dL (32-36); Mean Corpuscular Hemoglobin 31 pg (26-34); Mean Corpuscular Volume 93 fL (80-100); Monocytes Percent Auto 5.3 % (0.0-11.0); Neutrophils Percent Auto 87.3 % (42.0-72.0); Platelet Count* 248 K/uL (140-440); RDW Coefficient of Variation % 12.4 % (11.5-15.5); Red Blood Count 3.58 m/uL (4.00-5.20); White Blood Count* 16.85 K/uL (4.50-11.00)
[2024-07-10 10:50] LABS: Slide Review Reflex No
[2024-07-10 10:55] LABS: Chloride* 106 mmol/L (96-114); Potassium* 3.8 mmol/L (3.6-5.1); Sodium* 139 mmol/L (135-149)
[2024-07-10 10:58] LABS: Anion Gap 12 mEq/L (7-15); Blood Urea Nitrogen* 17 mg/dL (5-24); Carbon Dioxide* 21 mmol/L (20-32); Creatinine* 0.6 mg/dL (0.5-1.5); Est. Creatinine Clearance* 122.25; Estimated Glomerular Filt Rate 123 ml/min
[2024-07-10 10:59] LABS: Calcium* 8.8 mg/dL (8.4-10.6); Glucose* 109 mg/dL (60-115)
[2024-07-10 11:01] LABS: C Reactive Protein* 2.8 mg/dL (0.5-1.0)
[2024-07-10 11:16] LABS: Appearance Urine Slightly Cloudy (Clear); Bilirubin Urine Negative (Negative); Blood Urine 2+ (Negative); Color Urine Yellow (Yellow); Glucose Urine Negative (Negative); Ketones Urine Negative (Negative); Leukocyte Esterase Urine Negative (Negative); Nitrite Urine Negative (Negative); Protein Urine Negative (Negative); Urobilinogen Urine 0.2 (0.2-1.0); pH Urine 5.5 (5.0-8.5)
[2024-07-10 11:19] LABS: Ur HCG Qualitative* Negative (Negative)
[2024-07-10 11:24] LABS: Amorphous Sediment Urine Few; Bacteria Urine Moderate; RBC Urine 0-2 (0-2); Squamous Epithelial Cell Urine Moderate (None-Few); WBC Urine 0-2 (0-5)
[2024-07-10] MEDS: ONDANSETRON 2 MG/ML inj 4 MG IVP ×2 (12:54→18:00)
[2024-07-10] MEDS: cefTRIAXone 2 GM in 0.9 % SODIUM CHLORIDE Mini-bag 100 ML IVPB (12:55)
[2024-07-10] MEDS: 0.9 % SODIUM CHLORIDE 500 ML 500 ML IV (13:24)
[2024-07-10] MEDS: HYDROmorphone 0.5 mg/0.5 ml inj IVP ×2 (13:38→18:08)
[2024-07-10 14:35] LABS: PCR FLU A Negative PCR FLU A (Negative); PCR FLU B Negative PCR FLU B (Negative); SARS PCR* Negative SARS-CoV-2 (Negative)
--- NOTE | 2024-07-10 15:58 | ED.NURSE ---
Pt report given to klever RN, pt to room 262.
--- NOTE | 2024-07-10 16:17 | P.GYNHP_ITS ---
RESEARCH CHIEF ENGINEER - H&P:HPI Medical History of Present Illness Time Seen by Provider: 15:00 Date Seen: 07/10/24 Reason for admission: pelvic inflammatory disease Narrative: Jj Shore is a 29 year old nulligravid female who presented to the emergency department complaining of severe pelvic pain. History was obtained with the assistance of a android developer via ipad. The patient was undergoing an infertility evaluation through the [facility]. She had a hysterosalpingogram yesterday morning. Prior to the HSG, she had been diagnosed by ultrasound with a probable left hydrosalpinx as well as a simple left ovarian cyst. At the time of her HSG, the physician noted severe bilateral hydrosalpinx with marked dilation of the distal fallopian tubes bilaterally. No free spillage was identified from either the right or left fallopian tube suggesting bilateral occlusion. She was given a prescription for 200 mg doxycycline that she took just prior to the hysterosalpingogram procedure. The patient states that the procedure was uncomfortable, but the pain resolved after the procedure. She began having more significant pain at midnight last night. She treated her pain with oral ibuprofen last night and then again this morning. She also complained of feeling hot and cold with chills overnight, as well as nausea. She went to work this morning, but the pain persisted and was so intense that she presented to the emergency department. The pain is located all across the low abdomen, worse on the left than the right. She has had some irregular bleeding between menses over the last few months, and she has had some light vaginal bleeding since her procedure yesterday. During her evaluation in the emergency department, her nausea worsened and she experienced emesis. She was also reported to be febrile, though EMR records a T-max of 99.0? F. The patient was able to bring up test results through her [facility] patient portal, which I reviewed, and noted that her white blood cell count yesterday was normal, 6.5. Today it is significantly elevated at 16.85. A pelvic ultrasound was performed today that demonstrated bilateral hydrosalpinx, left larger than right. Low-level particulate debris was noted to be present within the asymmetrically-dilated left fallopian tube, suspicious for pyosalpinx. The patient complained of significant pain with advancement of the transvaginal ultrasound probe during the ultrasound examination. GYNECOLOGIC HISTORY: Cis gender female. LMP: 07/03/24. Irregular intermenstrual bleeding over the last few months. Menarche at age 11. Contraception: Patient has been actively trying to conceive for the last three months. She stopped her oral contraceptive a couple of years ago. Pap history: Per [facility] medical records, normal pap 2022, negative HPV 2023. Possible history of ablation of her cervix for HPV approximately in 2015, no excisional procedure done. Denies history of STDs or PID. Denies history of endometriosis. Review of Systems Status of ROS: Reports: 10 or more systems reviewed and unremarkable except as noted in History and below Meds Home Medications and Allergies Home Medications ?Medication ?Instructions ?Recorded ?Confirmed ?Type multivitamin (Daily Multi-Vitamin 1 tab PO DAILY 06/12/24 07/10/24 History tablet) Allergies Allergy/AdvReac Type Severity Reaction Status Date / Time No Known Drug Allergies Allergy Verified 06/12/24 17:09 PFSH Active Problems Pyosalpinx (Acute) ?N70.93 - Salpingitis and oophoritis, unspecified (ICD-10) Family History (Updated 07/10/24 @ 16:35 by Amparo Chang MD) Mother High blood pressure Father High blood pressure Maternal Grandfather High blood pressure Maternal Grandmother High blood pressure Paternal Grandfather Diabetes Stomach cancer Paternal Grandmother Diabetes Social History (Updated 07/10/24 @ 16:36 by Amparo Chang MD) Narrative: Single What is your current living situation?: I presently have a place to live Problems where you live: no known problems Problems where you live details: NA In the past 12 months, utilities in danger of being shut off: no In past 12 months, lack of transportation kept you from medical appts, meetings, work, or getting things needed for daily living: no In the past 12 mos, have been you worried that your food would run out before you had money to buy more?: never true In the past 12 mos, the food you bought just didn't last and you didn't have money to buy more?: never true Highest level of school completed/degree received: Bachelor's degree Smoking Status: Never smoker How often do you have a drink containing alcohol: never How many standard drinks containing alcohol do you have on a typical day: 3 or 4 How often do you have six or more drinks on one occasion: Never AUDIT-C Alcohol total score: 1 Non-prescribed substance use: denies use Caffeine: Yes How often does anyone, including family, friends and others, physically hurt you : never How often does anyone, including family, friends and others, insult or talk down to you: never How often does anyone, including family, friends and others, threaten you with harm: rarely How often does anyone, including family, friends and others, scream or curse at you: never Do you think of yourself as: straight/heterosexual Gender Identity: female Are you currently sexually active: Yes service: No Health Related Social Needs: Other personal risk factors, not elsewhere classified (Z91.89) Reproductive Health History : 0 History of sexually transmitted diseases: No Treatment for infertility: No RESEARCH CHIEF ENGINEER - Exam Physical Exam: Vital signs: Temp Pulse Resp BP Pulse Ox O2 Del Method 98.3 F 114 H 18 117/60 95 Room Air 07/10/24 14:50 07/10/24 14:45 07/10/24 12:12 07/10/24 14:31 07/10/24 14:45 07/10/24 12:12 Constitutional: Constitutional: mild distress (occasional grimace with movement) Routine HEENT Exam: Head: Present normal inspection Eye: Present normal appearance ENT: Present mucous membranes moist Routine Respiratory Exam: Respiratory: Present CTA bilaterally Routine Cardiovascular Exam: Cardiovascular: Present RRR Routine Abdominal Exam: Abdominal: Present soft and tenderness (Diffuse tenderness low abdomen, left greater than right); Absent guarding or rebound Routine Exam: Patient deferred: external exam Routine Extremities Exam: Extremities: Present normal inspection RESEARCH CHIEF ENGINEER - Results Labs Labs: Short CBC 07/10/24 Range/Units 10:22 WBC 16.85 H (4.50-11.00) K/uL Hgb 11.1 L (12.0-16.0) gm/dL Hct 33.1 (33.0-51.0) % Plt Count 248 (140-440) K/uL BMP 07/10/24 10:22 Sodium 139 Potassium 3.8 Chloride 106 Carbon Dioxide 21 BUN 17 Creatinine 0.6 Glucose 109 Calcium 8.8 Urine 07/10/24 Range/Units 10:50 Urine Color Yellow (Yellow) Urine Appearance Slightly Cloudy A (Clear) Urine pH 5.5 (5.0-8.5) Ur Specific [place] 1.020 (1.000-1.030) Urine Protein Negative (Negative) Urine Glucose (UA) Negative (Negative) Imaging US - pelvis: Attestation: I have reviewed the pertinent imaging results. My impression: Bilateral hydrosalpinx, extremely tortuous dilated left fallopian tube, approximately 5 cm left adnexal cyst with some internal debris. Radiologist's impression: Bilateral asymmetrical, left larger than right, hydrosalpinges. Low-level particular debris within the dilated left fallopian tube may indicate evidence of pyosalpinx. Clinical correlation is recommended. Small volume left adnexal free pelvic fluid. Normal uterus and ovaries. Assessment and Plan Assessment and plan (1) Pyosalpinx: Status: Acute Plan 1. During my evaluation of the patient within the emergency department, I did obtain a vaginal swab for gonorrhea/chlamydia. 2. The patient certainly may have pyosalpinx or pelvic inflammatory disease as a result of her hysterosalpingogram procedure and inadequate antibiotic coverage yesterday. She is not a candidate for outpatient treatment due to inability to tolerate p.o. secondary to nausea and vomiting today. Will admit to the medical-surgical unit for broad-spectrum IV antibiotic therapy, specifically doxycycline, ceftriaxone, and metronidazole. Pain will be controlled with IV Toradol, and morphine if necessary until she is tolerating p.o., at which time she will be transition to oral ibuprofen and Tylenol. We will plan to recheck a CBC with differential tomorrow morning. Once the patient has made adequate clinical improvement, she can be discharged to home on oral antibiotic therapy. 3. The patient had questions regarding fertility. Because of the bilateral hydrosalpinx, it is unlikely that she will conceive spontaneously. Ultimately, she may need to have her fallopian tubes removed surgically and undergo in vitro fertilization to conceive. This will need to be addressed at follow-up with her primary care or gynecologic provider. Total Time Spent Total Time Spent: 90 minutes.
[2024-07-10] MEDS: MORPHINE 2 MG/ML inj IVP (16:29)
[2024-07-10 17:21] LABS: Chlamydia DNA Amplified* NOT DETECTED (No Detected); GC DNA Amplified* NOT DETECTED (No Detected)
[2024-07-10] MEDS: ACETAMINOPHEN 500 MG TABLET 1000 MG PO (17:57)
[2024-07-10] MEDS: 0.9 % SODIUM CHLORIDE 1000 ml 1,000 ML 125 ML IV (17:58)
[2024-07-10] MEDS: DOXYCYCLINE HYCLATE 100 MG in 0.9 % SODIUM CHLORIDE Mini-bag 100 ML IVPB (17:59)
[2024-07-10] MEDS: metroNIDAZOLE 500 MG/100 ML PIGGYBACK 100 MG IVPB (18:59)
--- NOTE | 2024-07-10 19:35 | PC.NURSE ---
Nursing Care Hours: [id number] Pt this shift arrived to the floor via w/c. In person mechanical pencils assembler used for admission. Ipad used for medication administration and reassessments. Able to stand for weight and walk into room. BP stable, HR tachy, oral temp 99.0 and pain rated 7-8/10. During admission, news writer observed grimacing and increasing restlessness d/t pain. Heating pad supplied per pt request and Morphine IV given. After 1hr, checked pt and pt crying, increased restlessness, temp 101.7 oral and pain 10/10. Stat order for Dilaudid given and scheduled pain meds given. Acetaminophen PO for temp. Pain decreased to 6-7/10 and pt appeared comfortable and tolerating some bites of food. ABX infused via IV. Library Technician instructed pt to use call light when needing to get up d/t c/o dizziness with ambulation and increased narcotic pain media relations director. Pt receptive.
[2024-07-11] VITALS (10 sets, daily range): BP systolic 106–123; BP diastolic 46–67; PULSE 84–108; RESP 16–18; TEMP 36.8–39.3; O2SAT 94–97
[2024-07-11] MEDS: ACETAMINOPHEN 500 MG TABLET 1000 MG PO ×3 (04:08→18:22)
[2024-07-11] MEDS: 0.9 % SODIUM CHLORIDE 1000 ml 1,000 ML 125 ML IV ×2 (04:08→17:58)
[2024-07-11] MEDS: MORPHINE 2 MG/ML inj IVP ×4 (04:09→17:46)
[2024-07-11] MEDS: DOXYCYCLINE HYCLATE 100 MG in 0.9 % SODIUM CHLORIDE Mini-bag 100 ML IVPB ×2 (05:29→17:46)
[2024-07-11] MEDS: metroNIDAZOLE 500 MG/100 ML PIGGYBACK 100 MG IVPB ×2 (06:45→20:03)
[2024-07-11 07:01] LABS: Basophils Percent Auto 0.1 % (0.0-3.0); Eosinophils Percent Auto 0.4 % (0.0-7.0); Hematocrit 28.2 % (33.0-51.0); Hemoglobin* 9.4 gm/dL (12.0-16.0); Immature Granulocytes Pct Auto 0.2 %; Lymphocytes Percent Auto 8.5 % (20-44); Mean Corpuscular HGB Conc 33 gm/dL (32-36); Mean Corpuscular Hemoglobin 31 pg (26-34); Mean Corpuscular Volume 93 fL (80-100); Monocytes Percent Auto 5.7 % (0.0-11.0); Neutrophils Percent Auto 85.1 % (42.0-72.0); Platelet Count* 207 K/uL (140-440); RDW Coefficient of Variation % 12.8 % (11.5-15.5); Red Blood Count 3.02 m/uL (4.00-5.20); White Blood Count* 16.28 K/uL (4.50-11.00)
[2024-07-11 07:10] LABS: Slide Review Reflex No
--- NOTE | 2024-07-11 07:15 | PC.NURSE ---
End of shift [id number] ? Pt alert, oriented, cooperative. Up with standby assistance. Reported pain in abdomen rated as 7-8/10. Medication given per MAR with pt reporting minor improvement. Tolerating RA and regular diet/fluids. Denies SOB and n/v. Aqua K pad in place for pt comfort. Afebrile during shift. Appears to be resting in bed with call light within reach at end of shift.
--- NOTE | 2024-07-11 09:29 | PM.GYNPNNOR ---
Progress Note: A&P Assessment and plan (1) Pyosalpinx: Status: Acute Plan PID: This morning WBC still elevated. Has been afebrile since yesterday at around 7pm. She was able to eat a bit this morning w/o nausea or vomiting. She is hungry. Vital signs have remained stable and tachycardia has improved. Currently has not completed 24 hours of IV antibiotics. Will continue current management with IV Ceftriaxone, Flagyl and Doxycycline. Will add IV Toradol every 8 hours. Encouraged ambulation if able. If continues to spike fevers, pain worsens or is not manageable with current medication therapy will change antibiotic regimen and consider transfer for possible need for interventional radiology. At his moment, discussed that if we can control infection with IV antibiotics, we would not recommend surgical intervention as it is a higher risk procedure when there is significant associated inflammation. Patient is in agreement with plan. Will follow up closely. ROUTE VENDING MACHINE SERVICER- PN:Subj Non-OR Subjective Date Seen: 07/11/24 Interval history: Regular, wonders why she is still in pain. Yesterday at around 7pm had an episode of fever and associated nausea, vomiting. Symptomatic treatment improved symptoms and she was able to sleep a bit. She did have watery bowel movements last night. This morning was able to eat cereal w/o nausea or vomiting. She is feeling hungry. Patient states pain currently is constant with episodes of sharp pain that go away quickly. Pain has not significantly improved, nor worsened. ROUTE VENDING MACHINE SERVICER-PN: Obj Exam Physical Exam: Vital signs: Temp Pulse Resp BP Pulse Ox O2 Del Method 98.5 F 84 18 114/61 95 Room Air 07/11/24 05:35 07/11/24 05:35 07/11/24 05:35 07/11/24 05:35 07/11/24 05:35 07/11/24 05:35 Narrative: VITAL SIGNS: As noted above. GENERAL APPEARANCE: Alert, cooperative female in no acute distress. MOOD & AFFECT: Normal. ABDOMEN: Decreased bowel sounds, soft, mildly distended. No guarding, no rebound, tenderness to palpation at lower abdominal quadrants. : spotting. EXTREMITIES: Nonedematous. Well perfused. Nontender. ROUTE VENDING MACHINE SERVICER - PN: Obj Data Labs Labs: Laboratory Results - last 24 hr 07/10/24 07/10/24 07/10/24 10:22 10:50 13:30 WBC 16.85 H RBC 3.58 L Hgb 11.1 L Hct 33.1 MCV 93 MCH 31 MCHC 34 RDW Coeff of Zhou 12.4 Plt Count 248 Neut % (Auto) 87.3 H Lymph % (Auto) 6.9 L [place] % (Auto) 5.3 Eos % (Auto) 0.2 Baso % (Auto) 0.1 Neut # (Auto) 14.70 H Lymph # (Auto) 1.20 [place] # (Auto) 0.90 Eos # (Auto) 0.00 Baso # (Auto) 0.00 Abs Immat Gran (auto) 0.00 Imm/Tot Granulo (auto) 0.2 Sodium 139 Potassium 3.8 Chloride 106 Carbon Dioxide 21 Anion Gap 12 BUN 17 Creatinine 0.6 Estimated Creat Clear 122.25 Estimated GFR 123 Glucose 109 Lactate 1.5 Calcium 8.8 C-Reactive Protein 2.8 H Urine Color Yellow Urine Appearance Slightly Cloudy A Urine pH 5.5 Ur Specific [place] 1.020 Urine Protein Negative Urine Glucose (UA) Negative Urine Ketones Negative Urine Blood 2+ A Urine Nitrite Negative Urine Bilirubin Negative Urine Urobilinogen 0.2 Ur Leukocyte Esterase Negative Urine RBC 0-2 Urine WBC 0-2 Ur Squamous Epith Cells Moderate A Amorphous Sediment Few A Urine Bacteria Moderate A Urine HCG, Qual Negative C.trachomatis Ampl DNA SARS-CoV-2 (PCR) Negative SARS-CoV-2 Influenza Type A (PCR) Negative PCR FLU A Influenza Type B (PCR) Negative PCR FLU B N.gonorrhoeae Ampl DNA 07/10/24 07/11/24 15:40 06:29 WBC 16.28 H RBC 3.02 L Hgb 9.4 L Hct 28.2 L MCV 93 MCH 31 MCHC 33 RDW Coeff of Zhou 12.8 Plt Count 207 Neut % (Auto) 85.1 H Lymph % (Auto) 8.5 L [place] % (Auto) 5.7 Eos % (Auto) 0.4 Baso % (Auto) 0.1 Neut # (Auto) 13.90 H Lymph # (Auto) 1.40 [place] # (Auto) 0.90 Eos # (Auto) 0.10 Baso # (Auto) 0.00 Abs Immat Gran (auto) 0.00 Imm/Tot Granulo (auto) 0.2 Sodium Potassium Chloride Carbon Dioxide Anion Gap BUN Creatinine Estimated Creat Clear Estimated GFR Glucose Lactate Calcium C-Reactive Protein Urine Color Urine Appearance Urine pH Ur Specific [place] Urine Protein Urine Glucose (UA) Urine Ketones Urine Blood Urine Nitrite Urine Bilirubin Urine Urobilinogen Ur Leukocyte Esterase Urine RBC Urine WBC Ur Squamous Epith Cells Amorphous Sediment Urine Bacteria Urine HCG, Qual C.trachomatis Ampl DNA NOT DETECTED SARS-CoV-2 (PCR) Influenza Type A (PCR) Influenza Type B (PCR) N.gonorrhoeae Ampl DNA NOT DETECTED
[2024-07-11] MEDS: KETOROLAC 30 MG/ML inj IVP ×2 (10:08→17:45)
[2024-07-11] MEDS: ONDANSETRON 2 MG/ML inj 4 MG IVP ×2 (11:58→17:54)
[2024-07-11] MEDS: cefTRIAXone 1 GM in 0.9 % SODIUM CHLORIDE Mini-bag 100 ML IVPB (12:53)
[2024-07-11 15:24] LABS: Basophils Percent Auto 0.1 % (0.0-3.0); Eosinophils Percent Auto 0.5 % (0.0-7.0); Hematocrit 28.7 % (33.0-51.0); Hemoglobin* 9.5 gm/dL (12.0-16.0); Immature Granulocytes Pct Auto 0.4 %; Lymphocytes Percent Auto 6.7 % (20-44); Mean Corpuscular HGB Conc 33 gm/dL (32-36); Mean Corpuscular Hemoglobin 31 pg (26-34); Mean Corpuscular Volume 94 fL (80-100); Monocytes Percent Auto 5.2 % (0.0-11.0); Neutrophils Percent Auto 87.1 % (42.0-72.0); Platelet Count* 196 K/uL (140-440); RDW Coefficient of Variation % 12.8 % (11.5-15.5); Red Blood Count 3.05 m/uL (4.00-5.20); White Blood Count* 14.69 K/uL (4.50-11.00)
[2024-07-11 15:33] LABS: Slide Review Reflex No
[2024-07-11 15:35] LABS: Albumin* 3.6 g/dL (3.3-5.0); Chloride* 109 mmol/L (96-114)
[2024-07-11 15:36] LABS: Potassium* 3.2 mmol/L (3.6-5.1); Sodium* 139 mmol/L (135-149)
[2024-07-11 15:38] LABS: Bilirubin Total* 0.5 mg/dL (0.1-1.5); Creatinine* 0.6 mg/dL (0.5-1.5); Est. Creatinine Clearance* 122.25; Estimated Glomerular Filt Rate 123 ml/min
[2024-07-11 15:39] LABS: Alanine Aminotransferase* 16 U/L (4-35); Alkaline Phosphatase* 64 U/L (40-150); Anion Gap 9 mEq/L (7-15); Aspartate Amino Transferase* 17 U/L (12-35); Blood Urea Nitrogen* 12 mg/dL (5-24); Carbon Dioxide* 21 mmol/L (20-32); Glucose* 98 mg/dL (60-115); Total Protein* 6.3 g/dL (6.0-8.3)
[2024-07-11 16:09] LABS: C Reactive Protein* 33.1 mg/dL (0.5-1.0)
--- NOTE | 2024-07-11 18:18 | CRLHL7_ITS ---
For Patients: As a result of the Century Cures Act, medical imaging exams and procedure reports are released immediately into your electronic medical record. You may view this report before your referring provider. If you have questions, please contact your health care provider. Indication: PID, not responding to current antibiotic therapy Technique: CT abdomen/pelvis with IV contrast Comparison: Pelvic ultrasound on July 10, 2024 and prior Findings: Lower thorax: Bibasilar atelectasis. Abdomen/pelvis: The liver is unremarkable in appearance. Cholelithiasis without CT evidence of acute cholecystitis. The spleen, pancreas, adrenal glands, kidneys, ureters, and bladder are unremarkable in appearance. The uterus is within normal limits in appearance. There is a tortuous and tubular fluid-filled structure seen in the left adnexa, difficult to accurately measure, but measuring approximately 9.0 centimeters in greatest dimension with tube diameter measuring up to approximately 3.7 centimeters (series number 2, image 128). No significant tubal wall thickening. The right adnexa is unremarkable in appearance. There is no evidence of bowel obstruction or inflammation. The appendix is within normal limits in appearance. No free air, free fluid, or abscess. No abdominopelvic lymphadenopathy. The vasculature is unremarkable. Soft tissue/musculoskeletal: No acute abnormality. Partially visualized breast implants. Tiny calcified granulomas in the subcutaneous fat of the pelvis. Impression: 1. CT findings as detailed above suggestive of left hydrosalpinx versus pyosalpinx in the appropriate clinical context. 2. The remainder of the examination is unremarkable. Please note that all CT scans at this facility use dose modulation, iterative reconstruction, and/or weight-based dosing when appropriate to reduce radiation dose to as low as reasonably achievable. Dictated by Cuco Tidwell MD @ 07/11/2024 8:01:32 PM (Electronically Signed)
[2024-07-11] MEDS: LACTOBACILLUS ACIDOPHILUS 1 TABLET 1 TAB PO (18:22)
--- NOTE | 2024-07-11 18:53 | P.IMCN_ITS ---
Date of Consult Patient: [facility] Patient Consult date: 07/11/24 Requesting Physician: [facility] Primary Care Provider: Not a Local Provider Consult Narrative Reason for consult: Suspected pyosalpinx Narrative: Jj Shore is a 29 year old woman has been in the hospital for over 24 hours for treatment of pyosalpinx, left greater than right, with IV ceftr iaxone 1 g Q 24 hours, IV doxycycline 100 mg Q 12 hours, and IV metronidazole 500 mg IV Q 12 hours. Despite these intervention efforts, she continues to spike fevers as high as 102.7? F and continues to have significant bilateral lower abdominal pelvic pain, still left greater than right. White blood cell count today continues to be elevated at 14.5. C-reactive protein yesterday was 2.8 and today is 33. She is in the process of undergoing infertility assessment. She had a hysterosalpingogram on 07/09/2024. Prior to the HSG, an ultrasound demonstrated a probable left hydrosalpinx as well as a simple left ovarian cyst. The HSG demonstrated ?severe bilateral hydrosalpinx with marked dilatation of the distal fallopian tubes bilaterally. No free spillage was identified from either the right or left fallopian tube suggesting bilateral occlusion.? She took a dose of doxycycline 200 mg orally just prior to the HSG procedure. The pain associated with the HSG eventually resolved. Early in the morning of 07/10/2024 she began having much more significant pain. Attempted to treat pain with oral ibuprofen. Did not get much relief. Also complained of feeling alternatively hot and cold with chills and nausea. Due to the persistent nature of her symptoms she presented to the emergency department for further assessment and support. In the ED she notes pain across the low abdomen left more so than right. Patient also described irregular bleeding between menses over the last few months. T-max in the emergency department was 99? F. White blood cell count on 07/09/24 was 6.5. In the Emergency Department was elevated at 16.9. Pelvic ultrasound performed on 07/10/2024 demonstrated ?bilateral hydrosalpinx, left larger than right. Low-level particulate debris noted to be present within the asymmetrically dilated left fallopian tube, suspicious of pyosalpinx.? Patient noted significant pain with advancement of the transvaginal ultrasound probe during the ultrasound examination. Urine hCG is negative. DNA amplification testing from the urine is negative for chlamydia and gonorrhea. She denies STDs. Review of Systems Status of ROS: Reports: 6 or more systems reviewed and unremarkable except as noted in History and below [facility] Family History Mother High blood pressure Father High blood pressure Maternal Grandfather High blood pressure Maternal Grandmother High blood pressure Paternal Grandfather Diabetes Stomach cancer Paternal Grandmother Diabetes Social History Narrative: Single What is your current living situation?: I presently have a place to live Problems where you live: no known problems Problems where you live details: NA In the past 12 months, utilities in danger of being shut off: no In past 12 months, lack of transportation kept you from medical appts, meetings, work, or getting things needed for daily living: no In the past 12 mos, have been you worried that your food would run out before you had money to buy more?: never true In the past 12 mos, the food you bought just didn't last and you didn't have money to buy more?: never true Highest level of school completed/degree received: Bachelor's degree Smoking Status: Never smoker How often do you have a drink containing alcohol: never How many standard drinks containing alcohol do you have on a typical day: 3 or 4 How often do you have six or more drinks on one occasion: Never AUDIT-C Alcohol total score: 1 Non-prescribed substance use: denies use Caffeine: Yes How often does anyone, including family, friends and others, physically hurt you : never How often does anyone, including family, friends and others, insult or talk down to you: never How often does anyone, including family, friends and others, threaten you with harm: rarely How often does anyone, including family, friends and others, scream or curse at you: never Do you think of yourself as: straight/heterosexual Gender Identity: female Are you currently sexually active: Yes service: No Health Related Social Needs: Other personal risk factors, not elsewhere classified (Z91.89) Meds Home Medications and Allergies Home Medications ?Medication ?Instructions ?Recorded ?Confirmed ?Type multivitamin (Daily Multi-Vitamin 1 tab PO DAILY 06/12/24 07/10/24 History tablet) Allergies Allergy/AdvReac Type Severity Reaction Status Date / Time No Known Drug Allergies Allergy Verified 06/12/24 17:09 Exam Narrative: Exam Narrative: I examined the patient in her hospital room. Vision and hearing are adequate. Speaks fluent Romansh. Does not speak Faroese. We speak with 1 another via iPad logistics manager. She is frightened. She is tearful. Alert and oriented x4. Articulate and cooperative. Lungs clear to auscultation. Heart tones with regular rhythm, rate of around 100. No murmur, gallop, rub. Abdomen with active bowel sounds. Tender in the lower portion of the abdomen. No rebound or guarding. Independent in transfer, station, gait. Skin warm, dry, intact. No rashes. No petechiae. No jaundice. No cyanosis. Const: Vital Signs, click to edit/add: Vital Signs - 24 hr 07/10/24 19:00 07/11/24 01:28 07/11/24 05:35 Temperature 99.6 F 98.2 F 98.5 F Pulse Rate [Left P ulse Oximeter] 96 91 84 Respiratory Rate 18 18 18 Blood Pressure [Le ft Arm] 108/57 L 106/46 L 114/61 Pulse Oximetry 95 97 95 Oxygen Delivery Me thod Room Air Room Air Room Air 07/11/24 11:59 07/11/24 13:42 07/11/24 15:00 Temperature 99.0 F 100.7 F H 100.9 F H Pulse Rate [Left P ulse Oximeter] 88 108 H Respiratory Rate 16 16 Blood Pressure [Le ft Arm] 108/66 123/67 Pulse Oximetry 94 97 Oxygen Delivery Me thod Room Air Room Air 07/11/24 16:00 07/11/24 18:05 07/11/24 18:22 Temperature 99.1 F 102.7 F H 102.7 F H Pulse Rate [Left P ulse Oximeter] Respiratory Rate Blood Pressure [Le ft Arm] Pulse Oximetry Oxygen Delivery Me thod Labs Labs: Short CBC 07/11/24 07/11/24 Range/Units 06:29 15:18 WBC 16.28 H 14.69 H (4.50-11.00) K/uL Hgb 9.4 L 9.5 L (12.0-16.0) gm/dL Hct 28.2 L 28.7 L (33.0-51.0) % Plt Count 207 196 (140-440) K/uL BMP 07/11/24 15:18 Sodium 139 Potassium 3.2 L Chloride 109 Carbon Dioxide 21 BUN 12 Creatinine 0.6 Glucose 98 Calcium 8.0 L Liver Function 07/11/24 Range/Units 15:18 Total Bilirubin 0.5 (0.1-1.5) mg/dL AST 17 (12-35) U/L ALT 16 (4-35) U/L Alkaline Phosphatase 64 (40-150) U/L Albumin 3.6 (3.3-5.0) g/dL Imaging Pelvic ultrasound: Radiologist's impression: FINDINGS: LMP: Not provided. Uterus: Measures 4.9 x 4 x 8.8cm. Unremarkable cervix. Please note that US is insensitive for detection of epithelial lesions of the cervix, compared to physical examination. Endometrial stripe: Measures 3mm. Uniform in thickness. Right Ovary: Measures 2.3 x 2.5 x 3.7cm and 11mL. Morphologically normal. Spectral Doppler demonstrates normalarterial and venousblood flow. Left Ovary: Measures 3 x 2.1 x 3.3cm and 11mL. Morphologically normal. Spectral Doppler demonstrates normalarterial and venousblood flow. Pelvic fluid: Small volume anechoic left adnexal free pelvic fluid. Bilateral hydrosalpinges, left larger than right. Low-level particulate debris is present within the asymmetrically dilated left fallopian tube. This may indicate evidence of pyosalpinx. Clinical correlation is recommended. IMPRESSION: Bilateral asymmetrical, left larger than right, hydrosalpinges. Low-level particular debris within the dilated left fallopian tube may indicate evidence of pyosalpinx. Clinical correlation is recommended. Small volume left adnexal free pelvic fluid. Assessment and Plan Assessment and plan (1) Pyosalpinx: Problem comment: - transvaginal ultrasound 07/10/2024: Bilateral asymmetrical, left larger than right, hydrosalpinges. Low-level particular debris within the dilated left fallopian tube may indicate evidence of pyosalpinx. Clinical correlation is recommended. Small volume left adnexal free pelvic fluid. - currently on ceftriaxone 1 g IV Q 24, doxycycline 100 mg IV q.12, metronidazole 500 mg IV q.12, and within the last 1-2 hours piperacillin with tazobactam 3.375 g IV q.6 hours was started. - agree with ordering a CT scan to make sure that were not missing an acute appendicitis or other phlegmon or complication from the pyosalpinx. - agree with the tentative plan of transferring patient to a tertiary [facility] care facility with Interventional Radiology capabilities depending on patient response to interventions undertaken and depending on the findings on the CT scan. Status: Acute Plan 1. Reviewed impression with patient 2. Obtain a lactate level. We will treat with IV crystalloid fluids as warranted depending on the result of the lactate level 3. Will be available to confer with Dr. Mclain Total Time Spent Total Time Spent: 60 minutes
[2024-07-11] MEDS: 0.9 % SODIUM CHLORIDE 1000 ml 1,000 ML IV (19:12)
[2024-07-11] MEDS: PIPERACILLIN/TAZOBACTAM 3.375 GM in 0.9 % SODIUM CHLORIDE Mini-bag 100 ML IVPB (19:12)
[2024-07-11] MEDS: POTASSIUM CHLORIDE 10 MEQ CAPSULE ER 40 MEQ PO (19:12)
[2024-07-11 20:37] LABS: Lactate* 0.8 mmol/L (0.5-1.9)
[2024-07-11] MEDS: VANCOMYCIN 2 GM/400 ML 2 GM/400 ML PIGGYBACK IVPB (21:15)
--- NOTE | 2024-07-11 21:36 | PM.GYNPNNOR ---
Progress Note: A&P Assessment and plan (1) Pyosalpinx: Problem details: - transvaginal ultrasound 07/10/2024: Bilateral asymmetrical, left larger than right, hydrosalpinges. Low-level particular debris within the dilated left fallopian tube may indicate evidence of pyosalpinx. Clinical correlation is recommended. Small volume left adnexal free pelvic fluid. - currently on ceftriaxone 1 g IV Q 24, doxycycline 100 mg IV q.12, metronidazole 500 mg IV q.12, and within the last 1-2 hours piperacillin with tazobactam 3.375 g IV q.6 hours was started. - agree with ordering a CT scan to make sure that were not missing an acute appendicitis or other phlegmon or complication from the pyosalpinx. - agree with the tentative plan of transferring patient to a tertiary [facility] facility with Interventional Radiology capabilities depending on patient response to interventions undertaken and depending on the findings on the CT scan. Status: Acute Plan Not responding to initial IV antibiotics, spiked another fever of 102.7 at around 6pm and continues to experience episodes of severe abdominal pain. Has not been able to tolerate food due to persistent nausea/vomiting. Concern for sepsis. Hospitalist consulted. Abdominal/Pelvic CT scan ordered. Changed IV antibiotic regimen to Vancomycin and Zosyn. Blood cultures obtained. Increase IV fluids. Close monitoring. Continue to manage pain. FU at around 8:30pm: CT scan with left hydrosalpinx/pyosalpinx. 9cm in largest dimension. Temperature has decreased, lactate 0.8. Still concern for worsening condition and will attempt transfer for higher level of care, possible need for IR, ICU etc... FU at 10:30pm: Case discussed with Dr. Pranav Cardenas/[facility]. Case accepted for transfer. Currently patient deemed stable for a bed at medical surgical unit, at this moment she is on a waitlist. [facility] she [facility] be transferred to either [facility], [facility] or [facility]. Whichever has a bed available first. If patient status changes we would need to seek a different option. At this moment, she is stable and I agree that this plan is appropriate. Plan was discussed with patient and she is in agreement. DRESS SHOE INSPECTOR- PN:Subj Non-OR Subjective Time Seen by Provider: 18:15 Date Seen: 07/11/24 Interval history: Not feeling well. DRESS SHOE INSPECTOR-PN: Obj Exam Physical Exam: Vital signs: Temp Pulse Resp BP Pulse Ox O2 Del Method 99.3 F 106 H 18 123/67 95 Room Air 07/11/24 20:03 07/11/24 20:03 07/11/24 20:03 07/11/24 20:03 07/11/24 20:03 07/11/24 20:03 Narrative: VITAL SIGNS: As noted above. GENERAL APPEARANCE: Alert, cooperative female in no acute distress. MOOD & AFFECT: Normal. ABDOMEN: Bowel sounds present, no guarding, but rebound pain on the lower abdomen. EXTREMITIES: Nonedematous. Well perfused. Nontender. DRESS SHOE INSPECTOR - PN: Obj Data Labs Labs: Laboratory Results - last 24 hr 07/11/24 07/11/24 07/11/24 06:29 15:18 20:30 WBC 16.28 H 14.69 H RBC 3.02 L 3.05 L Hgb 9.4 L 9.5 L Hct 28.2 L 28.7 L MCV 93 94 MCH 31 31 MCHC 33 33 RDW Coeff of Zhou 12.8 12.8 Plt Count 207 196 Neut % (Auto) 85.1 H 87.1 H Lymph % (Auto) 8.5 L 6.7 L [place] % (Auto) 5.7 5.2 Eos % (Auto) 0.4 0.5 Baso % (Auto) 0.1 0.1 Neut # (Auto) 13.90 H 12.80 H Lymph # (Auto) 1.40 1.00 [place] # (Auto) 0.90 0.80 Eos # (Auto) 0.10 0.10 Baso # (Auto) 0.00 0.00 Abs Immat Gran (auto) 0.00 0.10 Imm/Tot Granulo (auto) 0.2 0.4 Sodium 139 Potassium 3.2 L Chloride 109 Carbon Dioxide 21 Anion Gap 9 BUN 12 Creatinine 0.6 Estimated Creat Clear 122.25 Estimated GFR 123 Glucose 98 Lactate 0.8 Calcium 8.0 L Total Bilirubin 0.5 AST 17 ALT 16 Alkaline Phosphatase 64 C-Reactive Protein 33.1 H Total Protein 6.3 Albumin 3.6
[2024-07-12] VITALS (7 sets, daily range): BP systolic 112–129; BP diastolic 59–78; PULSE 86–103; RESP 16–18; TEMP 36.9–37.4; O2SAT 96–99
[2024-07-12] MEDS: PIPERACILLIN/TAZOBACTAM 3.375 GM in 0.9 % SODIUM CHLORIDE Mini-bag 100 ML IVPB ×4 (00:56→18:11)
[2024-07-12] MEDS: KETOROLAC 30 MG/ML inj IVP ×2 (02:25→10:02)
[2024-07-12] MEDS: 0.9 % SODIUM CHLORIDE 1000 ml 1,000 ML 125 ML IV ×2 (05:38→18:48)
[2024-07-12] MEDS: ACETAMINOPHEN 500 MG TABLET 1000 MG PO ×2 (06:40→16:43)
[2024-07-12 07:00] LABS: Basophils Percent Auto 0.2 % (0.0-3.0); Eosinophils Percent Auto 0.9 % (0.0-7.0); Hemoglobin* 9.2 gm/dL (12.0-16.0); Immature Granulocytes Pct Auto 0.5 %; Lymphocytes Percent Auto 10.6 % (20-44); Mean Corpuscular HGB Conc 33 gm/dL (32-36); Mean Corpuscular Hemoglobin 31 pg (26-34); Mean Corpuscular Volume 95 fL (80-100); Monocytes Percent Auto 5.6 % (0.0-11.0); Neutrophils Percent Auto 82.2 % (42.0-72.0); Platelet Count* 204 K/uL (140-440); RDW Coefficient of Variation % 13.1 % (11.5-15.5); Red Blood Count 2.96 m/uL (4.00-5.20); White Blood Count* 13.09 K/uL (4.50-11.00)
[2024-07-12 07:04] LABS: Slide Review Reflex No
[2024-07-12 07:15] LABS: Albumin* 3.2 g/dL (3.3-5.0); Chloride* 112 mmol/L (96-114); Sodium* 139 mmol/L (135-149)
[2024-07-12 07:16] LABS: Potassium* 3.3 mmol/L (3.6-5.1)
[2024-07-12 07:18] LABS: Alanine Aminotransferase* 14 U/L (4-35); Alkaline Phosphatase* 72 U/L (40-150); Anion Gap 7 mEq/L (7-15); Aspartate Amino Transferase* 15 U/L (12-35); Bilirubin Total* 0.4 mg/dL (0.1-1.5); Carbon Dioxide* 20 mmol/L (20-32); Creatinine* 0.5 mg/dL (0.5-1.5); Estimated Glomerular Filt Rate 129 ml/min; Glucose* 92 mg/dL (60-115)
[2024-07-12 07:19] LABS: Calcium* 7.8 mg/dL (8.4-10.6)
--- NOTE | 2024-07-12 07:29 | PC.NURSE ---
Pt alert and oriented. Pt had elevated temp prior to shift trending downward. Pt reports 5-7/10 pain in pelvic area and 4/10 headache, managed with scheduled medications and cold cloth to forehead. Civilian Technician used with interactions. MD Dempsey gave orders for transfer, pt is currently on waiting list and will transfer with non-emergent EMS. Pt is up SBA with IV pole, voiding, and tolerating a regular diet. Expanse down time from approximately [id number].?
[2024-07-12 07:33] LABS: Blood Urea Nitrogen* 8 mg/dL (5-24)
[2024-07-12] MEDS: metroNIDAZOLE 500 MG/100 ML PIGGYBACK 100 MG IVPB (08:14)
[2024-07-12] MEDS: LACTOBACILLUS ACIDOPHILUS 1 TABLET 1 TAB PO ×3 (08:15→18:11)
--- NOTE | 2024-07-12 09:49 | P.GYNPN_ITS ---
Progress Note: A&P Assessment and plan (1) Pyosalpinx: Problem details: - transvaginal ultrasound 07/10/2024: Bilateral asymmetrical, left larger than right, hydrosalpinges. Low-level particular debris within the dilated left fallopian tube may indicate evidence of pyosalpinx. Clinical correlation is recommended. Small volume left adnexal free pelvic fluid. - currently on ceftriaxone 1 g IV Q 24, doxycycline 100 mg IV q.12, metronidazole 500 mg IV q.12, and within the last 1-2 hours piperacillin with tazobactam 3.375 g IV q.6 hours was started. - agree with ordering a CT scan to make sure that were not missing an acute appendicitis or other phlegmon or complication from the pyosalpinx. - agree with the tentative plan of transferring patient to a tertiary [facility] care facility with Interventional Radiology capabilities depending on patient response to interventions undertaken and depending on the findings on the CT scan. Status: Acute Plan Patient feels better this morning. No new episodes of fever overnight. Labs WBC slightly better than yesterday at 13 from 14.6. No worsening chemistry. Vital signs continue to remain stable. Still waiting for transfer bed. Discussed with patient to communicate with our clinic for after discharge, so that we can follow up and schedule bilateral salpingectomy when infection is resolved. Patient in agreement with plan. MECHANICAL RELIABILITY ENGINEER- PN:Subj Non-OR Subjective Date Seen: 07/12/24 Interval history: Feeling a bit better. Was able to eat apple sauce this morning. Diarrhea has continued. MECHANICAL RELIABILITY ENGINEER-PN: Obj Exam Physical Exam: Vital signs: Temp Pulse Resp BP Pulse Ox O2 Del Method 98.7 F 86 16 113/67 96 Room Air 07/12/24 08:00 07/12/24 08:00 07/12/24 06:27 07/12/24 08:00 07/12/24 08:00 07/12/24 08:00 Narrative: VITAL SIGNS: As noted above. GENERAL APPEARANCE: Alert, cooperative female in no acute distress. MOOD & AFFECT: Normal. ABDOMEN: Non distended, less tender than yesterday but still slightly tender to palpation of lower abdomen. EXTREMITIES: Nonedematous. Well perfused. Nontender. MECHANICAL RELIABILITY ENGINEER - PN: Obj Data Labs Labs: Laboratory Results - last 24 hr 07/11/24 07/11/24 07/12/24 15:18 20:30 06:35 WBC 14.69 H 13.09 H RBC 3.05 L 2.96 L Hgb 9.5 L 9.2 L Hct 28.7 L 28.0 L MCV 94 95 MCH 31 31 MCHC 33 33 RDW Coeff of Zhou 12.8 13.1 Plt Count 196 204 Neut % (Auto) 87.1 H 82.2 H Lymph % (Auto) 6.7 L 10.6 L [place] % (Auto) 5.2 5.6 Eos % (Auto) 0.5 0.9 Baso % (Auto) 0.1 0.2 Neut # (Auto) 12.80 H 10.80 H Lymph # (Auto) 1.00 1.40 [place] # (Auto) 0.80 0.70 Eos # (Auto) 0.10 0.10 Baso # (Auto) 0.00 0.00 Abs Immat Gran (auto) 0.10 0.10 Imm/Tot Granulo (auto) 0.4 0.5 Sodium 139 139 Potassium 3.2 L 3.3 L Chloride 109 112 Carbon Dioxide 21 20 Anion Gap 9 7 BUN 12 8 Creatinine 0.6 0.5 Estimated Creat Clear 122.25 146.70 Estimated GFR 123 129 Glucose 98 92 Lactate 0.8 Calcium 8.0 L 7.8 L Total Bilirubin 0.5 0.4 AST 17 15 ALT 16 14 Alkaline Phosphatase 64 72 C-Reactive Protein 33.1 H Total Protein 6.3 6.0 Albumin 3.6 3.2 L
[2024-07-12] MEDS: VANCOMYCIN 1.5 GM/300 ML 1.5 GM/300 ML PIGGYBACK IVPB (10:01)
[2024-07-12] MEDS: IBUPROFEN 600 MG TABLET PO (14:20)
[2024-07-12] MEDS: MORPHINE 2 MG/ML inj IVP (14:24)
[2024-07-12] MEDS: POTASSIUM CHLORIDE 10 MEQ CAPSULE ER 40 MEQ PO (16:35)
[2024-07-12] MEDS: POTASSIUM CHLORIDE 10 MEQ, LIDOCAINE 1 % 1 ML in 0.9 % SODIUM CHLORIDE 100 ml 100 ML 106 MEQ IVPB (16:35)
[2024-07-12] MEDS: VANCOMYCIN 1.25 GM/250 ML 1.25 GM/250 ML PIGGYBACK IVPB (18:45)
--- NOTE | 2024-07-12 18:52 | PC.NURSE ---
Transfer-- Pleasant and cooperative, alert and oriented, Citizen [place] speaking patient was transferred to [facility] for interventional radiology procedure at approximately 1850 via EMS. VSS and highest temp today was 99.4F. SPO2 maintained >94% on RA. Pain appears well managed with Morphine, Motrin and Tylenol PRN. See eMAR for details. Abdomen remains mildly tender to touch. LS CTA. She denied nausea today, though appetite was poor. Pt had less loose BMs today compared to yesterday, but loose stools continue. She was up to the BR and shower today independently and tolerated it fair. She did c/o increased pain following ambulation. Family was at bedside today and appear loving and supportive. Ipad nitrogen operator utilized as needed throughout the day. Nurse to nurse report was given to Kate at [facility] and all questions were answered.
== END 2024-07-12 18:50 | disposition short-term general hospital (02) | DRG 531 ==
LOC: ED 15:16 → MEDSURG 15:57
PROVIDERS: Internal Medicine; Obstetrics & Gynecology; Admitting Provider Obstetrics & Gynecology; Emergency Provider Family Medicine; Visit Provider Family Medicine
DX: N70.03 Acute salpingitis and oophoritis (principal); N73.9 Female pelvic inflammatory disease, unspecified; N70.11 Chronic salpingitis; N83.292 Other ovarian cyst, left side; N92.1 Excessive and frequent menstruation with irregular cycle; R10.2 Pelvic and perineal pain
CPT/HCPCS: 36415; 74177; 76830; 76856; 80048; 80053; 81001; 81025; 83605; 85025; 86140; 87040; 87086; 87186; 87491; 87591; 87631; 93976; 99284; 99285; T1013; A9270; J0696; J1171; J1836; J1885; J2270; J2405; J2543; J3372; J3480; J7030; Q9967

== ENCOUNTER 2024-07-12 18:51 | Outpatient (CLI) | payer BC, SELFPAY | END 2024-07-12 18:52 | disposition home or self-care (01) | LOC: AMB 07-27 16:21 | PROVIDERS: Visit Provider Family Medicine | DX: N70.93 Salpingitis and oophoritis, unspecified (principal) | CPT/HCPCS: A0425; A0427 ==

== ENCOUNTER 2025-02-05 10:16 | Outpatient (CLI) | payer BC, SELFPAY ==
[2025-02-05 14:54] LABS: Bacterial Vaginosis* Negative (Negative); Candida glab/krus NOT DETECTED (No Detected)
[2025-02-06 22:42] LABS: HPV Source Cervix
[2025-02-09 14:37] LABS: Pap Test Digital Imaging Done
== END 2025-02-05 10:17 | disposition home or self-care (01) ==
PROVIDERS: Visit Provider Obstetrics & Gynecology
DX: Z12.4 Encounter for screening for malignant neoplasm of cervix (principal); N93.9 Abnormal uterine and vaginal bleeding, unspecified; N70.93 Salpingitis and oophoritis, unspecified; R94.6 Abnormal results of thyroid function studies
CPT/HCPCS: 81513; 84443; 87481; 87624; 87625; 87661; 88141; 88142; 88175

== ENCOUNTER 2025-04-28 17:21 | Outpatient (CLI) | payer BC, SELFPAY ==
--- NOTE | 2025-04-28 17:30 | CRLHL7_ITS ---
For Patients: As a result of the Century Cures Act, medical imaging exams and procedure reports are released immediately into your electronic medical record. You may view this report before your referring provider. If you have questions, please contact your health care provider. INDICATION: AUB, postcoital bleeding hx of pyosalpinx, random spotting COMPARISON: CT 07/11/2024, ultrasound 07/10/2024 TECHNIQUE: 2D fernandez-scale and color Doppler images were acquired of the pelvis using a transabdominal and transvaginal approach. Transvaginal imaging performed to better visualize the endometrial stripe and ovaries. FINDINGS: Sonographic images demonstrate a normal size and smooth outer contour of the uterus. Uterus measures 8.2 cm in length by 4.1 cm in AP diameter by 5.3 cm in transverse dimension. The myometrium has a normal uniform echotexture. The endometrial lining measures 13.6 mm in composite thickness. Hyperechoic focus associated with the fundal endometrium measures 6 x 4 x 6 millimeters. No endometrial fluid. The right ovary measures 3.3 x 2.0 x 1.9 cm in size and the left ovary measures 3.0 x 1.9 x 2.0 cm. The ovaries demonstrate normal arterial and venous blood flow on color Doppler analysis. Left paraovarian cyst measures 13 x 8 x 10 millimeters. Hypoechoic nonvascular structure in the right ovary measures 2.3 x 1.3 x 1.9 cm. IMPRESSION: Endometrial thickness 13.6 millimeters with possible endometrial polyp measuring 6 millimeters. Hypoechoic nonvascular structure within the right ovary measures 2.3 cm. Follow-up in 6 months recommended. Incidental left paraovarian cyst measures 13 millimeters. Dictated by Lux Rodriguez MD @ 04/29/2025 6:14:19 PM (Electronically Signed)
== END 2025-04-28 17:22 | disposition home or self-care (01) ==
LOC: US 17:21
PROVIDERS: Visit Provider Obstetrics & Gynecology
DX: N93.9 Abnormal uterine and vaginal bleeding, unspecified (principal); R93.89 Abnormal findings on diagnostic imaging of other specified body structures; N83.201 Unspecified ovarian cyst, right side; N70.93 Salpingitis and oophoritis, unspecified
CPT/HCPCS: 76830; 76856; T1013

== ENCOUNTER 2025-04-30 05:24 | Day surgery (SDC) | payer BC, SELFPAY ==
[2025-04-30] VITALS (28 sets, daily range): BP systolic 100–132; BP diastolic 55–76; PULSE 63–107; RESP 16–30; TEMP 36.3–36.7; O2SAT 96–100; BMI 31.6
--- OUTSIDE RECORDS SUMMARY | 2025-04-30 05:26 | XMS_ITS | Clinical Summary ---
Author Organization [facility] Address [address] [place] [id number] Care Team Providers Care Jig Grinder Name Role Phone Renee Calle DO Primary Care Provider [phone] Allergies No known active allergies Medications multivit,thx,ca lcium,iron,mins (MULTIVITAMIN AND MINERAL ORAL) Take by mouth. Activ e CPAPIndications :HERMES (obstructive sleep apnea) RESMED CPAP (E0601) machine for home use at pressure: 5-15cmw, Choice of mask (A7030 or A7034) w/full face cushion (A7031) x1/mo, nasal cushion (A7032) x2/mo, or nasal pillows (A7033) x 2/mo; Length of Need: 99 months; Frequency of use: Daily 1 Each 11 5 Active Active Problems Problem Noted Date Diagnosed Date PID (acute pelvic inflammatory disease) 07/15/19 25 Left pyosalpinx 07/12/2024 Hypokalemia 07/12/2024 Family History Medical History Relation Name Comments [...] or isolated from those around you? 0 07/13/2024 Financial Resource Strain Answer Date R ecorded Difficulty of Paying Living Expenses 3 06/09/2024 Difficulty of Paying Living Expenses Not on file 06/09/2024 Food Insecurity Answer Date Recorded Do you worry your food will run out before you are able to buy more? 1 07/13/2024 Transportation Needs Answer Date Record ed Does lack of transportation keep you from medica l appointments? 1 07/13/2024 Does lack of transportation keep you from work, meetings or getting things that you need? 1 07/13/2024 Housing Stability Answer Date Recorded What is your housing situation today? 1 07/13/2024 Interpersonal Safety Answer Date Record ed Are you being hit, kicked, p ushed or yelled at (see row info)? No 07/13/2024 Interpersonal Safety Abuse 12 - 18 Not on file 07/13/2024 Interpersonal Safety Ambulatory Vulnerability No t on file 07/13/2024 Utilities Answer Date Recorded Do you have trouble paying f or utilities (for example, heat, electricity, water, phone)? 1 07/13/2024 Comments No Sex and Gender Information Value Date Recorded Sex Assigned at Not on file Legal Sex Female 3:32 PM STERILE TECH Gender Identity Not on file Sexual Orientation Not on file Obstetrics History Para Term AB IAB SAB Ectopic Multiple Livin g Live Births 0 0 0 0 0 0 0 0 0 0 0 Last Filed Vital Signs Vital Sign Reading Time Taken Comments Blood Pressure 112/75 12/29/2024 9:02 AM CDT Pulse 70 12/29/2024 9:02 AM CDT Temperature 36.8 C (98.3 F) 07/16/2024 9:36 AM STERILE TECH Respiratory Rate 18 07/16/2024 9:36 AM STERILE TECH Oxygen Saturation 100% 12/29/2024 9:02 AM CDT Inhaled Oxygen Concentration - - Weight 95.7 kg (211 lb) 12/29/2024 9:02 AM CDT Height 165.1 cm (5' 5) 07/13/2024 9:00 AM STERILE TECH Body Mass Index 35.11 07/13/2024 9:00 AM STERILE TECH Plan of Treatment Upcoming Encounters Date Type Department Care Team (Late st Contact Info) Description 05/04/2025 9:00 AM STERILE TECH Office Visit [facility] [address] [place] [address] Efren Carson MD [address] [place] [address] Health Maintenance Due Date Last Done Comments Tetanus booster 01/16/2004 HIV for age 15-65 01/16/2008 Hepatitis C screening for ag e 18-79 2011 Hepatitis B series for 19+ ( 1 of 3 - 19+ 3-dose series) 01/16/2012 Pap test for age 21-65 2014 HPV series for age 9-45 (1 - 3-dose SCDM series) 01/16/2020 Influenza Vaccine (#1) 2025 BMI (ht and wt on same day) for age 18+ 06/09/2025 06/09/2024 Depression screening for age 12+ 06/11/2025 06/11/2024, 06/09/2024 RSV vaccine for adults or (1 - 1-dose 75+ series) 01/16/2068 Pneumococcal series for age 6-49 Aged Out No longer eligible b ased on patient's age to complete this topic Insurance [facility] Advance Directives * Full Code (Latest Code Status on File) Date Activated Date Inactivated Comments 07/12/2024 8:35 PM 07/16/2024 4:04 PM Question Answer Comments Code Status Discussion: Other Care Teams Jig Grinder Relationship Specialty Start Date End Date Renee Calle [place] [address] [address] PCP - General Family Practice 12/29/24
[2025-04-30] MEDS: ONDANSETRON 2 MG/ML inj 4 MG IVP (05:41)
[2025-04-30 05:47] LABS: Hematocrit* 36.0 % (33.0-51.0); Hemoglobin* 12.3 gm/dL (12.0-16.0); Immature Granulocytes Abs Auto 0.00 K/uL (0.00-0.30); Immature Granulocytes Pct Auto 0.0 %; Lymphocytes Absolute Auto 2.19 K/uL (0.90-2.90); Mean Corpuscular HGB Conc 34 gm/dL (32-36); Mean Corpuscular Hemoglobin 30 pg (26-34); Mean Corpuscular Volume 86 fL (80-100); RDW Coefficient of Variation % 14.3 % (11.5-15.5); Red Blood Count* 4.17 m/uL (4.00-5.20); White Blood Count* 9.29 K/uL (4.50-11.00)
[2025-04-30 05:48] LABS: Slide Review Reflex No
[2025-04-30 05:54] LABS: Lactate* 5.1 mmol/L (0.5-1.9)
[2025-04-30 06:02] LABS: Albumin* 4.7 g/dL (3.3-5.0); Chloride* 102 mmol/L (96-114); Potassium* 3.3 mmol/L (3.6-5.1); Sodium* 138 mmol/L (135-149)
[2025-04-30 06:04] LABS: Alanine Aminotransferase* 28 U/L (4-35); Anion Gap 18 mEq/L (7-15); Aspartate Amino Transferase* 25 U/L (12-35); Blood Urea Nitrogen* 18 mg/dL (5-24); Carbon Dioxide* 18 mmol/L (20-32); Creatinine* 0.7 mg/dL (0.5-1.5); Est. Creatinine Clearance* 103.82; Estimated Glomerular Filt Rate 118 ml/min; HCG Qualitative Serum* Negative (Negative); Total Protein* 8.2 g/dL (6.0-8.3)
[2025-04-30 06:05] LABS: Alkaline Phosphatase* 81 U/L (40-150); Bilirubin Direct* 0.2 mg/dL (0.0-0.5); Bilirubin Total* 0.4 mg/dL (0.1-1.5); Calcium* 9.2 mg/dL (8.4-10.6); Glucose* 135 mg/dL (60-115)
[2025-04-30 06:06] LABS: Ethanol* < 0.01 % (0.01-0.03)
--- NOTE | 2025-04-30 06:08 | ED.ABDPAIN ---
HPI - Abdominal Pain General Date Seen: 04/30/25 Chief Complaint: Abdominal Pain Stated Complaint: abdominal pain Time Seen by Provider: 04/30/25 05:38 Source: patient, family, RN notes reviewed and old records reviewed Mode of arrival: ambulatory Limitations: no limitations History of Present Illness HPI narrative: Patient is a 31-year-old female who presents here with acute episode of epigastric and chest discomfort since approximately 1:00 a.m. tonight. This woke her from sleep. She vomited approximately 6 times according to her who is brought her in. Her speaks Belgian but she speaks Yi. He interprets for them. She has not had a fever chills she was doing fine today, she was being treated with sounds like for stomach issues, as she is on omeprazole and sulcrafate, although in her chart I can find no record of this. Her primary physician is at [facility]. No change in her bowel habits no dysuria no frequency, her last period was 15 days ago normal see does not think she is . She has an IUD. Denies any blood in her urine, Does have a history of bilateral pyosalpinx. MD elicited complaint: abdominal pain Onset (ago): hour(s) Pain Consistency: constant and colicky Location: epigastric Severity: moderate Quality: cramping and sharp Radiation: none Migration to: no migration Exacerbating factors: nothing Relieving factors: nothing Associated symptoms: nausea and vomiting Related Data Date of last menstrual period: 04/15/25 Home Medications ?Medication ?Instructions ?Recorded ?Confirmed ascorbic acid (vitamin C) 1,000 mg 1,000 mg PO QDAY 02/05/25 02/05/25 capsule biotin 5 mg tablet 5 mg PO QDAY 02/05/25 02/05/25 cholecalciferol (vitamin D3) 125 125 mcg PO QDAY 02/05/25 02/05/25 mcg (5,000 unit) capsule vitamin B complex 1 tab PO QDAY 02/05/25 02/05/25 vitamin E (dl, acetate) 45 mg (100 45 mg PO QDAY 02/05/25 02/05/25 unit) capsule Allergies Allergy/AdvReac Type Severity Reaction Status Date / Time No Known Drug Allergies Allergy Verified 04/30/25 06:52 Review of Systems Status of ROS Reports: 10 or more systems reviewed and unremarkable except as noted in History and below PFSH PFS Medical History (Updated 04/30/25 @ 08:27 by Danielito Huertas MD) Admission for breast augmentation ?Z41.1 - Encounter for cosmetic surgery (ICD-10) Surgical History (Updated 07/23/24 @ 16:31 by Sofie Dempsey MD) H/O liposuction ?Z98.890 - Other specified postprocedural states (ICD-10) H/O surgical removal of Bartholin’s gland cyst ?Z98.890 - Other specified postprocedural states (ICD-10) ?Z87.42 - Personal history of other diseases of the female genital tract (ICD-10) H/O abdominoplasty ?Z98.890 - Other specified postprocedural states (ICD-10) Family History Mother High blood pressure Father High blood pressure Maternal Grandfather High blood pressure Maternal Grandmother High blood pressure Paternal Grandfather Diabetes Stomach cancer Paternal Grandmother Diabetes Social History Narrative: Single What is your current living situation?: I presently have a place to live Problems where you live: no known problems Problems where you live details: NA In the past 12 months, utilities in danger of being shut off: no In past 12 months, lack of transportation kept you from medical appts, meetings, work, or getting things needed for daily living: no In the past 12 mos, have been you worried that your food would run out before you had money to buy more?: never true In the past 12 mos, the food you bought just didn't last and you didn't have money to buy more?: never true Highest level of school completed/degree received: Bachelor's degree Smoking Status: Never smoker How often do you have a drink containing alcohol: never How many standard drinks containing alcohol do you have on a typical day: 3 or 4 How often do you have six or more drinks on one occasion: Never AUDIT-C Alcohol total score: 1 Non-prescribed substance use: denies use Caffeine: Yes How often does anyone, including family, friends and others, physically hurt you: never How often does anyone, including family, friends and others, insult or talk down to you: never How often does anyone, including family, friends and others, threaten you with harm: rarely How often does anyone, including family, friends and others, scream or curse at you: never Do you think of yourself as: straight/heterosexual Gender Identity: female Are you currently sexually active: Yes service: No Health Related Social Needs: Other personal risk factors, not elsewhere classified (Z91.89) Exam Narrative: Exam Narrative: On examination she is moaning, and fairly hysterical in room 5. Pupils equal round reactive to light there is no scleral icterus redness, TMs are normal oropharynx normal there is no adenopathy anterior posterior chains, her chest is clear bilaterally no wheezing crackles noted heart sounds are normal her abdomen is fairly soft, I do not detect any masses no peritoneal signs, tenderness in the epigastric right upper quadrant is notable. Bowel sounds are quiet, no redness rashes moves all extremities independently and well. Const: Vital Signs, click to edit/add: Vital Signs - 24 hr 04/30/25 05:26 04/30/25 07:29 04/30/25 07:30 Temperature 98.0 F Pulse Rate 72 Pulse Rate [Left P ulse Oximeter] 80 Respiratory Rate 30 H 16 20 Blood Pressure Blood Pressure [Ri ght Upper Arm] 126/71 Pulse Oximetry 99 97 Oxygen Delivery Me thod Room Air 04/30/25 07:45 04/30/25 08:00 04/30/25 08:21 Temperature Pulse Rate 72 73 67 Pulse Rate [Left P ulse Oximeter] Respiratory Rate 22 21 20 Blood Pressure 132/76 Blood Pressure [Ri ght Upper Arm] Pulse Oximetry 96 99 100 Oxygen Delivery Me thod 04/30/25 08:22 Temperature Pulse Rate 63 Pulse Rate [Left P ulse Oximeter] Respiratory Rate Blood Pressure Blood Pressure [Ri ght Upper Arm] Pulse Oximetry 100 Oxygen Delivery Me thod Documenting provider has reviewed patient's vital signs: yes Course Reevaluation(s) Time of Reevaluation #1: 08:29 Reevaluation #1: I had spoken to earlier, she does says she does not need ultrasound based on the findings, she also said patient did not need antibiotics they will give her 2 her preoperatively in the OR. Patient's pain is still been fairly high, despite 1.5 mg total of Dilaudid, we will boost to this with a little bit of Toradol 15 mg IV. Keep her NPO also. Patient is been signed over for pain medications to my partner, Dr. Wood Vital Signs Vital signs: Initial Vital Signs Temperature 98.0 F 04/30/25 05:26 Temperature Source Temporal Artery Scan 04/30/25 05:26 Pulse Rate 80 04/30/25 05:26 Pulse Rhythm Regular 04/30/25 05:26 Respiratory Rate 30 H 04/30/25 05:26 Blood Pressure 126/71 04/30/25 05:26 Blood Pressure Mean 89 04/30/25 05:26 Blood Pressure Position Semi-Fowlers 04/30/25 05:26 Pulse Oximetry 99 04/30/25 05:26 Oxygen Delivery Method Room Air 04/30/25 05:26 Vital Signs Temperature 98.0 F 04/30/25 05:26 Pulse Rate 80 04/30/25 05:26 Respiratory Rate 30 H 04/30/25 05:26 Blood Pressure 126/71 04/30/25 05:26 Pulse Oximetry 99 04/30/25 05:26 Oxygen Delivery Method Room Air 04/30/25 05:26 Temperature 98.0 F 04/30/25 05:26 Pulse Rate 63 04/30/25 08:22 Respiratory Rate 20 04/30/25 08:21 Blood Pressure 132/76 04/30/25 08:21 Pulse Oximetry 100 04/30/25 08:22 Oxygen Delivery Method Room Air 04/30/25 05:26 Medications Administered Medications: Discontinued Medications Generic Name Dose Route Start Last Admin Trade Name Freq PRN Reason Stop Dose Admin Hydromorphone HCl 0.5 mg 04/30/25 05:37 04/30/25 05:42 Hydromorphone 0.5 Mg/0.5 Ml Inj IVP 04/30/25 05:38 0.5 mg ONCE ONE Administration Hydromorphone HCl 0.5 mg 04/30/25 06:15 04/30/25 06:23 Hydromorphone 0.5 Mg/0.5 Ml Inj IVP 04/30/25 06:16 0.5 mg ONCE ONE Administration Hydromorphone HCl 0.5 mg 04/30/25 07:30 04/30/25 07:37 Hydromorphone 0.5 Mg/0.5 Ml Inj IVP 04/30/25 07:31 0.5 mg ONCE ONE Administration Sodium Chloride 1,000 mls @ 1,000 mls/hr 04/30/25 05:45 04/30/25 06:32 0.9 % Sodium Chloride 1000 Ml IV 04/30/25 06:44 Infused .Q1H AICHA Infusion Sodium Chloride 1,000 mls @ 1,000 mls/hr 04/30/25 07:15 04/30/25 07:37 0.9 % Sodium Chloride 1000 Ml IV 04/30/25 08:14 1,000 mls/hr .Q1H AICHA Administration Ondansetron HCl 4 mg 04/30/25 05:37 04/30/25 05:41 Ondansetron 2 Mg/Ml Inj IVP 04/30/25 05:38 4 mg ONCE ONE Administration MDM - Abdominal Pain MDM Narrative Medical decision making narrative: During the evaluation of this patient I considered multiple differential diagnosis including life-threatening differentials which are appendicitis, aortic aneurysm, mesenteric ischemia, bowel perforation, ectopic , volvulus and bowel obstruction, other differential diagnosis include but are not limited to inflammatory bowel disease, cholecystitis, pancreatitis, hepatitis, gastritis, GERD, diverticulitis, peptic ulcer disease, pyelonephritis/UTI, renal colic/stone, pelvic inflammatory disease, cervicitis, endometritis, intrauterine , dysfunctional uterine bleeding, ovarian cyst/torsion, spontaneous as well as other etiologies Medical Records Attestation: I reviewed the patient's medical records. Lab Data Attestation: I reviewed the patient's lab results. Labs: Lab Results 04/30/25 04/30/25 04/30/25 Range/Units 05:35 05:38 05:50 WBC 9.29 (4.50-11.00) K/uL RBC 4.17 (4.00-5.20) m/uL Hgb 12.3 (12.0-16.0) gm/dL Hct 36.0 (33.0-51.0) % MCV 86 (80-100) fL MCH 30 (26-34) pg MCHC 34 (32-36) gm/dL RDW Coeff of Zhou 14.3 (11.5-15.5) % Plt Count 300 (140-440) K/uL Neut % (Auto) 70.7 (42.0-72.0) % Lymph % (Auto) 23.6 (20-44) % [place] % (Auto) 5.0 (0.0-11.0) % Eos % (Auto) 0.6 (0.0-7.0) % Baso % (Auto) 0.1 (0.0-3.0) % Neut # (Auto) 6.57 (1.7-7.0) K/uL Lymph # (Auto) 2.19 (0.90-2.90) K/uL [place] # (Auto) 0.50 (0.00-0.90) K/UL Eos # (Auto) 0.06 (0.00-0.50) K/uL Baso # (Auto) 0.01 (0.00-0.30) K/uL Abs Immat Gran (auto) 0.00 (0.00-0.30) K/uL Imm/Tot Granulo (auto) 0.0 % Sodium 138 (135-149) mmol/L Potassium 3.3 L (3.6-5.1) mmol/L Chloride 102 (96-114) mmol/L Carbon Dioxide 18 L (20-32) mmol/L Anion Gap 18 H (7-15) mEq/L BUN 18 (5-24) mg/dL Creatinine 0.7 (0.5-1.5) mg/dL Estimated Creat Clear 103.82 Estimated GFR 118 ml/min Glucose 135 H (60-115) mg/dL Lactate 5.1 H* (0.5-1.9) mmol/L Calcium 9.2 (8.4-10.6) mg/dL Total Bilirubin 0.4 (0.1-1.5) mg/dL Direct Bilirubin 0.2 (0.0-0.5) mg/dL AST 25 (12-35) U/L ALT 28 (4-35) U/L Alkaline Phosphatase 81 (40-150) U/L POC Troponin I High Sensi 2.9 (2.9-13.0) pg/mL Total Protein 8.2 (6.0-8.3) g/dL Albumin 4.7 (3.3-5.0) g/dL Lipase 88 (23-300) U/L HCG, Qual Negative (Negative) Urine Color Light yellow (Yellow) Urine Appearance Clear (Clear) Urine pH 7.5 (5.0-8.5) Ur Specific [place] 1.020 (1.000-1.030) Urine Protein Negative (Negative) Urine Glucose (UA) Negative (Negative) Urine Ketones Negative (Negative) Urine Blood 2+ A (Negative) Urine Nitrite Negative (Negative) Urine Bilirubin Negative (Negative) Urine Urobilinogen 0.2 (0.2-1.0) Ur Leukocyte Esterase 1+ A (Negative) Urine RBC 0-2 (0-2) Urine WBC 2-5 (0-5) Ur Squamous Epith Cells Few (None-Few) Urine Bacteria Moderate A (None) Ethyl Alcohol < 0.01 (0.01-0.03) % Imaging Data CT scan - abdomen: Attestation: I have reviewed the pertinent imaging results. Radiologist's impression: [place] [address] Diagnostic Imaging Report Patient: Jj Camara MR#: [id number] : 1995 Acct:[id number] Loc: ED Service Date: 04/30/[address]: Ordering Physician: Danielito Huertas M.D. Date of Service: 04/30/25 Procedure(s): CT abdomen pelvis w con Accession Number(s): [id number] cc: Provider,Not a Local; Danielito Huertas M.D.~ For Patients: As a result of the Cures Act, medical imaging exams and procedure reports are released immediately into your electronic medical record. You may view this report before your referring provider. If you have questions, please contact your health care provider. INDICATION: Epigastric pain. COMPARISON: 07/11/2024, 04/28/2025 TECHNIQUE: CT of the abdomen and pelvis with intravenous contrast. Multiplanar axial, coronal, and sagittal reformats were reconstructed. Contrast: 93 mL Isovue 370. FINDINGS: Lung bases: Calcified granuloma. Liver: Normal. No mass. Gallbladder and bile ducts: There is a 3.3 centimeter gallstone at the gallbladder neck. The gallbladder is distended and there is wall thickening and pericholecystic edema. No bile duct dilation. Pancreas: Normal. Spleen: Normal. Adrenal glands: Normal. Kidneys: Normal parenchyma. No cyst or solid mass. No calculi. No urinary tract dilation. Urinary bladder: Normal. Pelvis: No cyst or mass. Vessels: Normal. Bowel: No dilated or inflamed bowel. Normal appendix. Moderate stool burden. Lymph nodes: No adenopathy. Peritoneum: No ascites. Abdominal wall: No hernia. Significant interspersed fat in the gluteus muscles may be related to cosmetic procedure. Bilateral breast implants partially seen in the field of view. Bones: No fractures. No focal worrisome bone lesions. IMPRESSION: Calculus cholecystitis. Please note that all CT scans at this facility use dose modulation, iterative reconstruction, and/or weight-based dosing when appropriate to reduce radiation dose to as low as reasonably achievable. Dictated by Nayana Mijares MD @ 04/30/2025 6:58:16 AM (Electronically Signed) ECG Data Attestation: I personally reviewed and interpreted this ECG as follows: ECG interpretation date: 04/30/25 Interpretation: Normal sinus rhythm, with a ventricular rate of 81, QRS is 80 milliseconds QT is 452 and QTC is 525. Discharge Plan Discharge Clinical Impression: Acute cholecystitis Patient Disposition: XFER to OR Condition: Improved Instructions: Cholecystitis (ED), Laparoscopic Cholecystectomy (DC), Exploratory Laparoscopy (DC) Follow Up/Referrals: Provider,Not a Local [Primary Care Provider, Family Practice]
--- NOTE | 2025-04-30 06:14 | CRLHL7_ITS ---
For Patients: As a result of the Century Cures Act, medical imaging exams and procedure reports are released immediately into your electronic medical record. You may view this report before your referring provider. If you have questions, please contact your health care provider. INDICATION: Epigastric pain. COMPARISON: 07/11/2024, 04/28/2025 TECHNIQUE: CT of the abdomen and pelvis with intravenous contrast. Multiplanar axial, coronal, and sagittal reformats were reconstructed. Contrast: 93 mL Isovue 370. FINDINGS: Lung bases: Calcified granuloma. Liver: Normal. No mass. Gallbladder and bile ducts: There is a 3.3 centimeter gallstone at the gallbladder neck. The gallbladder is distended and there is wall thickening and pericholecystic edema. No bile duct dilation. Pancreas: Normal. Spleen: Normal. Adrenal glands: Normal. Kidneys: Normal parenchyma. No cyst or solid mass. No calculi. No urinary tract dilation. Urinary bladder: Normal. Pelvis: No cyst or mass. Vessels: Normal. Bowel: No dilated or inflamed bowel. Normal appendix. Moderate stool burden. Lymph nodes: No adenopathy. Peritoneum: No ascites. Abdominal wall: No hernia. Significant interspersed fat in the gluteus muscles may be related to cosmetic procedure. Bilateral breast implants partially seen in the field of view. Bones: No fractures. No focal worrisome bone lesions. IMPRESSION: Calculus cholecystitis. Please note that all CT scans at this facility use dose modulation, iterative reconstruction, and/or weight-based dosing when appropriate to reduce radiation dose to as low as reasonably achievable. Dictated by Nayana Mijares MD @ 04/30/2025 6:58:16 AM (Electronically Signed)
[2025-04-30 07:06] LABS: Appearance Urine Clear (Clear)
--- NOTE | 2025-04-30 07:44 | ED.NURSE ---
Message left for [facility] requesting in-person assistance.
[2025-04-30] MEDS: LACTATED RINGERS 1000 ML 1,000 ML 100 ML IV (08:35)
[2025-04-30] MEDS: PROCHLORPERAZINE 5 MG/ML VIAL IVP (08:41)
--- NOTE | 2025-04-30 10:20 | PM.GSHP ---
History of Present Illness History of Present Illness Date Seen: 04/30/25 Chief complaint: abdominal pain Narrative: Jj Camara is a 30 year old female who presents to the ER overnight with severe epigastric pain. She states the pain began at 1:00 a.m. and is centered mainly in her epigastric region but does spread across her upper abdomen. She has had nausea as well as vomiting. No change in her bowel habits. She states that for about 5 days before this, she had some generalized abdominal pain and increased gas. Years ago she had an episode of what she thought was gastritis gastritis and has had some intermittent symptoms but this year it has become more frequent. She denies any significant reflux symptoms. [facility] Medical History (Updated 04/30/25 @ 08:27 by Danielito Huertas MD) Admission for breast augmentation ?Z41.1 - Encounter for cosmetic surgery (ICD-10) Surgical History (Updated 07/23/24 @ 16:31 by Sofie Dempsey MD) H/O liposuction ?Z98.890 - Other specified postprocedural states (ICD-10) H/O surgical removal of Bartholin’s gland cyst ?Z98.890 - Other specified postprocedural states (ICD-10) ?Z87.42 - Personal history of other diseases of the female genital tract (ICD-10) H/O abdominoplasty ?Z98.890 - Other specified postprocedural states (ICD-10) Family History Mother High blood pressure Father High blood pressure Maternal Grandfather High blood pressure Maternal Grandmother High blood pressure Paternal Grandfather Diabetes Stomach cancer Paternal Grandmother Diabetes Social History Narrative: Single, she does not smoke. She works a fairly physical job, she drinks alcohol rarely. What is your current living situation?: I presently have a place to live Problems where you live: no known problems Problems where you live details: NA In the past 12 months, utilities in danger of being shut off: no In past 12 months, lack of transportation kept you from medical appts, meetings, work, or getting things needed for daily living: no In the past 12 mos, have been you worried that your food would run out before you had money to buy more?: never true In the past 12 mos, the food you bought just didn't last and you didn't have money to buy more?: never true Highest level of school completed/degree received: Bachelor's degree Smoking Status: Never smoker How often do you have a drink containing alcohol: never How many standard drinks containing alcohol do you have on a typical day: 3 or 4 How often do you have six or more drinks on one occasion: Never AUDIT-C Alcohol total score: 1 Non-prescribed substance use: denies use Caffeine: Yes How often does anyone, including family, friends and others, physically hurt you: never How often does anyone, including family, friends and others, insult or talk down to you: never How often does anyone, including family, friends and others, threaten you with harm: rarely How often does anyone, including family, friends and others, scream or curse at you: never Do you think of yourself as: straight/heterosexual Gender Identity: female Are you currently sexually active: Yes service: No Health Related Social Needs: Other personal risk factors, not elsewhere classified (Z91.89) Meds Home Medications and Allergies Home Medications ?Medication ?Instructions ?Recorded ?Confirmed ?Type ascorbic acid (vitamin C) 1,000 mg 1,000 mg PO QDAY 02/05/25 02/05/25 History capsule biotin 5 mg tablet 5 mg PO QDAY 02/05/25 02/05/25 History cholecalciferol (vitamin D3) 125 125 mcg PO QDAY 02/05/25 02/05/25 History mcg (5,000 unit) capsule vitamin B complex 1 tab PO QDAY 02/05/25 02/05/25 History vitamin E (dl, acetate) 45 mg (100 45 mg PO QDAY 02/05/25 02/05/25 History unit) capsule Allergies Allergy/AdvReac Type Severity Reaction Status Date / Time No Known Drug Allergies Allergy Verified 04/30/25 06:52 Exam Narrative: Exam Narrative: General appearance: Alert, cooperative, and in no distress Eyes: PERRLA, eye lids clear, and sclera white HENT Head: Normocephalic Ears: External ears normal Pulmonary: Clear to auscultation bilaterally Cardiovascular Heart: Regular rate and rhythm Extremities: warm and well perfused Gastrointestinal Abdominal: No scars. She is mildly tender in her upper abdomen with equivocal Wright sign. Musculoskeletal: Extremities: Upper: Both upper extremities have normal joint range of motion and intact strength. Lower: Both lower extremities have normal joint range of motion and intact strength. Skin: Normal skin color, texture, and turgor. Neurologic: No focal deficits Psychiatric: Alert, oriented, cooperative, normal affect. Const: Vital Signs, click to edit/add: Vital Signs - 24 hr 04/30/25 05:26 04/30/25 07:29 04/30/25 07:30 Temperature 98.0 F Pulse Rate 72 Pulse Rate [Left P ulse Oximeter] 80 Respiratory Rate 30 H 16 20 Blood Pressure Blood Pressure [Ri ght Upper Arm] 126/71 Pulse Oximetry 99 97 Oxygen Delivery Me thod Room Air 04/30/25 07:45 04/30/25 08:00 04/30/25 08:21 Temperature Pulse Rate 72 73 67 Pulse Rate [Left P ulse Oximeter] Respiratory Rate 22 21 20 Blood Pressure 132/76 Blood Pressure [Ri ght Upper Arm] Pulse Oximetry 96 99 100 Oxygen Delivery Me thod 04/30/25 08:22 04/30/25 08:30 04/30/25 08:45 Temperature Pulse Rate 63 72 86 Pulse Rate [Left P ulse Oximeter] Respiratory Rate Blood Pressure Blood Pressure [Ri ght Upper Arm] Pulse Oximetry 100 98 100 Oxygen Delivery Me thod 04/30/25 09:00 Temperature Pulse Rate 75 Pulse Rate [Left P ulse Oximeter] Respiratory Rate 20 Blood Pressure Blood Pressure [Ri ght Upper Arm] Pulse Oximetry 100 Oxygen Delivery Me thod Results Results Labs: WBC 9.29 Hgb 12.3 Lactate 5.1 --> 2.2 on recheck Potassium 3.3 Co2 18 AG 18 LFTs, lipase normal HCG negative Remainder of labs normal. Abdomen CT scan report/results: report reviewed and image reviewed Additional studies: INDICATION: Epigastric pain. COMPARISON: 07/11/2024, 04/28/2025 TECHNIQUE: CT of the abdomen and pelvis with intravenous contrast. Multiplanar axial, coronal, and sagittal reformats were reconstructed. Contrast: 93 mL Isovue 370. FINDINGS: Lung bases: Calcified granuloma. Liver: Normal. No mass. Gallbladder and bile ducts: There is a 3.3 centimeter gallstone at the gallbladder neck. The gallbladder is distended and there is wall thickening and pericholecystic edema. No bile duct dilation. Pancreas: Normal. Spleen: Normal. Adrenal glands: Normal. Kidneys: Normal parenchyma. No cyst or solid mass. No calculi. No urinary tract dilation. Urinary bladder: Normal. Pelvis: No cyst or mass. Vessels: Normal. Bowel: No dilated or inflamed bowel. Normal appendix. Moderate stool burden. Lymph nodes: No adenopathy. Peritoneum: No ascites. Abdominal wall: No hernia. Significant interspersed fat in the gluteus muscles may be related to cosmetic procedure. Bilateral breast implants partially seen in the field of view. Bones: No fractures. No focal worrisome bone lesions. IMPRESSION: Calculus cholecystitis. Dictated by Nayana Mijares MD @ 04/30/2025 6:58:16 AM Progress Note:A&P Assessment and plan (1) Acute cholecystitis: Status: Acute Plan The patient is a 30-year-old female with acute calculous cholecystitis. She does not have any abnormalities of her liver studies or lipase, therefore I think it is reasonable to skip further workup with ultrasound. We reviewed gallbladder anatomy, physiology in pathology. We discussed cholecystectomy as well as risks and benefits of surgery which include bleeding, infection, bile leak, conversion to open or injury to other structures, specifically the common bile duct, retained common bile duct stone and need for additional procedures postoperative. We also discussed recovery. She is agreeable to proceed we will plan on surgery urgently this morning
[2025-04-30 10:34] LABS: Lactate* 2.2 mmol/L (0.5-1.9)
--- NOTE | 2025-04-30 10:54 | P.ANES_ITS ---
Anesthesia Charges Start Date/Time Anesthesia Start Date: 04/30/25 Anesthesia Start Time: 11:00 Stop Date/Time Anesthesia Stop Date: 04/30/25 Anesthesia Stop Time: 12:24 Summary Emergency: KENY Coding CPT Codes CPT Codes: ANESTH SURG UPPER ABDOMEN - 47785 ([id number]) P2 - PATIENT W/MILD SYST DISEASE, QK - PAIRER SUBSTANDARD 2-4 CNCRNT ANES PROC, QX - SILVER LAP MACHINE TENDER SVC W/ MD MED DIRECTION Additional Codes: Summary - Emergency: KENY ([id number])
--- NOTE | 2025-04-30 10:54 | W.ANESCHARGE ---
Anesthesia Charges Start Date/Time Anesthesia Start Date: 04/30/25 Anesthesia Start Time: 11:00 Stop Date/Time Anesthesia Stop Date: 04/30/25 Anesthesia Stop Time: 12:24 Summary Emergency: KENY Coding CPT Codes CPT Codes: ANESTH SURG UPPER ABDOMEN - 03909 ([id number]) P2 - PATIENT W/MILD SYST DISEASE, QK - CAUSTIC MIXER 2-4 CNCRNT ANES PROC, QX - RESTAURANT GENERAL MANAGER SVC W/ MD MED DIRECTION Additional Codes: Summary - Emergency: KENY ([id number])
[2025-04-30] MEDS: PIPERACILLIN/TAZOBACTAM 3.375 GM INJ IVPB (11:14)
[2025-04-30 11:31] LABS: Ur HCG Qualitative* Negative (Negative)
[2025-04-30] MEDS: LACTATED RINGERS 1000 ML 1,000 ML 125 ML IV (11:55)
[2025-04-30] MEDS: BUPIVACAINE 0.25% 30 ML INJECTION (12:01)
[2025-04-30] MEDS: MEPERIDINE 25 MG/ML INJ 12.5 MG IVP (12:26)
--- NOTE | 2025-04-30 12:28 | P.ANES_ITS ---
Anesthesia Charges Start Date/Time Anesthesia Start Date: 04/30/25 Anesthesia Start Time: 11:00 Stop Date/Time Anesthesia Stop Date: 04/30/25 Anesthesia Stop Time: 12:24 Summary Emergency: MDA Coding CPT Codes CPT Codes: ANESTH SURG UPPER ABDOMEN - 90213 ([id number]) P2 - PATIENT W/MILD SYST DISEASE, QK - STRONG NITRIC OPERATOR 2-4 CNCRNT ANES PROC Additional Codes: Summary - Emergency: MDA ([id number])
--- NOTE | 2025-04-30 12:28 | W.ANESCHARGE ---
Anesthesia Charges Start Date/Time Anesthesia Start Date: 04/30/25 Anesthesia Start Time: 11:00 Stop Date/Time Anesthesia Stop Date: 04/30/25 Anesthesia Stop Time: 12:24 Summary Emergency: MDA Coding CPT Codes CPT Codes: ANESTH SURG UPPER ABDOMEN - 33215 ([id number]) P2 - PATIENT W/MILD SYST DISEASE, QK - BLEACH PACKER 2-4 CNCRNT ANES PROC Additional Codes: Summary - Emergency: MDA ([id number])
--- NOTE | 2025-04-30 12:34 | PM.GSPRC ---
Operative Note Date of procedure: 04/30/25 Pre-op diagnosis: Acute cholecystitis Post-op diagnosis: Same Type of Procedure: Laparoscopic cholecystectomy Indications: The patient is a 30-year-old female who presented to the emergency department with severe epigastric pain. Workup revealed cholecystitis secondary to a large gallstone in the gallbladder neck. I recommended cholecystectomy in after discussion of risks and benefits, she agreed to proceed. Procedure Description: After discussing the risks and benefits of the procedure, the patient signed informed consent.? The operative site was marked and the patient was brought to the operating room and placed on the operating table in supine position.? Care was taken to pad the patient's pressure points.?? The patient was then intubated by anesthesia.?? The operative site was then prepped and draped in the usual sterile fashion.? A time-out was then performed. Entrance to the abdomen was gained via a 5 mm Visiport in the left upper quadrant. The abdomen was insufflated and briefly surveyed for signs of injury. There was none. A 10 mm umbilical port was placed as well as 2 working ports along the right costal margin, all under direct vision. The patient was then placed in reverse Trendelenburg position with the right side up. The gallbladder was markedly dilated and distended, however I was able to grasp this in order to retract it cephalad. The infundibulum was grasped. A combination of hook cautery and blunt dissection was used to carefully dissect out the cystic duct and artery until they could clearly be seen entering the gallbladder without any intervening structures. The gallbladder was dissected off the cystic plate to achieve the critical view. Once this was achieved the cystic duct and artery were each clipped with 2 clips proximally and 1 clip on the specimen side and transected with the scissors. The gallbladder was then taken off of the liver bed and removed from the abdomen using an Endo-Catch bag. The gallbladder bed was surveyed for hemostasis which appeared excellent. The ports were then removed. The umbilical port fascia was closed with 0 Vicryl in an interrupted fashion. The skin was closed with absorbable subcuticular suture. Sterile dressings were then applied. Instrument sponge and needle counts were correct at the end of the case. The patient was then woken and transferred to the PACU in stable condition. ? The patient tolerated the procedure well. Findings: Acute cholecystitis with a large gallstone impacting the gallbladder neck Anesthesia: GETA Surgeon: La Burrows MD Estimated blood loss (mL): 5 Specimen: Gallbladder Condition: stable Disposition: PACU
== END 2025-04-30 14:16 | disposition home or self-care (01) ==
LOC: ED 08:27 → SS 12:09
PROVIDERS: Obstetrics & Gynecology; Emergency Provider Family Medicine; Visit Provider Surgery
PROC: 0FT44ZZ Resection of Gallbladder, Percutaneous Endoscopic Approach (ICD-10-PCS; CPT 47562; principal; 2025-04-30 10:30)
DX: K80.00 Calculus of gallbladder with acute cholecystitis without obstruction (principal)
CPT/HCPCS: 47562; 00790; 36415; 74177; 80048; 80076; 81001; 81025; 82077; 83605; 83690; 84484; 84703; 85018; 85025; 87086; 93005; 99140; 99285; T1013; J0330; J0665; J0780; J1100; J1171; J1630; J1885; J2175; J2405; J2543; J2704; J2710; J3010; J7030; J7120; Q9967